=== PATIENT | male | born 1950 | race Caucasian/White ===

== ENCOUNTER 2016-10-04 15:36 | Observation (INO) | payer OTHER ==
[2016-10-04] VITALS (11 sets, daily range): BP systolic 83–144; BP diastolic 50–84; PULSE 55–134; RESP 15–20; TEMP 98.2–98.3; O2SAT 92–98
[~2016-10-04] VITALS: Ht 175.3 cm; Wt 82.0 kg
[~2016-10-04 15:36] MED LIST: ALBU0.086 NEB; ARTHCRE; ASPI81; DUONI NEB; GLIP5 PO; GLUC1000 PO; ISOS20 PO; LEVEMIR SQ; METO50TA PO; MOBI15TA PO; NAPR-729 PO; PHEN100 PO; ROSU40 PO; [UNRECOGNIZED DRUG - CODE] PO
--- NOTE | 2016-10-04 15:45 | PD ---
Physical Exam Time Seen by Provider: 15:44 Narrative 66 y/o male here with n/v, h/a, cough for 2 days. Concern for hyperglycemia. Vital signs reviewed. Seen at triage desk. Awaiting bed placement. Data Data Last Documented VS Vital Signs Date Time Temp Pulse Resp B/P Pulse Ox O2 Delivery O2 Flow Rate FiO2 10/04/16 15:38 98.2 75 15 119/73 98 MDM Medical Record Reviewed: Yes Supervised Visit with KENNY: Meng Wolf Oct 04, 2016 15:45
[2016-10-04] MEDS ORDERED: SODIUM CHLORIDE 0.9% FLUSH 10 ML FLUSH IV FLUSH PRN ×2 (16:15→19:30)
[2016-10-04] MEDS ORDERED: SODIUM CHLOR 0.9% 1000 ML INJ 1,000 ML IV SCH (16:15)
[2016-10-04] MEDS ORDERED: ONDANSETRON HCL 4 MG/2 ML VIAL IV PUSH ONE (16:30)
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
[2016-10-04 16:53] LABS: AUTOMATED NEUTROPHIL # 4.3 TH/MM3 (1.8-7.7); BASOPHIL % 0.4 % (0.0-2.0); EOSINOPHIL % 0.5 % (0.0-4.0); HEMATOCRIT 44.4 % (39.0-51.0); HEMO FLAGS DIFF FINAL; LYMPH % 22.5 % (9.0-44.0); LYMPHOCYTE # 1.4 TH/MM3 (1.0-4.8); MEAN CELL VOLUME 89.3 FL (80.0-100.0); MEAN CORPUSCULAR HEMOGLOBIN 30.6 PG (27.0-34.0); MEAN CORPUSCULAR HGB CONC 34.2 % (32.0-36.0); MONO % 8.8 % (0.0-8.0); NEUT % 67.8 % (16.0-70.0); PLATELET COUNT 146 TH/MM3 (150-450); RED BLOOD COUNT 4.97 MIL/MM3 (4.50-5.90); RED CELL DISTRIBUTION WIDTH 13.2 % (11.6-17.2); WHITE BLOOD COUNT 6.3 TH/MM3 (4.0-11.0)
--- NOTE | 2016-10-04 17:12 | RADRPT ---
EXAM DATE/TIME: 10/04/2016 16:57 [facility] COMPARISON: CT BRAIN W/O CONTRAST, November 12, 2014, 18:03. INDICATIONS : Headaches with vomiting. RADIATION DOSE: 35.44 CTDIvol (mGy) MEDICAL HISTORY : Cardiovascular disease. Hypertension. Diabetes mellitus type 2.Seizures SURGICAL HISTORY : Appendectomy. ENCOUNTER: Initial ACUITY: 1 day PAIN SCALE: 7/10 LOCATION: Bilateral cranial TECHNIQUE: Multiple contiguous axial images were obtained of the head. Using automated exposure control and adj ustment of the mA and/or kV according to patient size, radiation dose was kept as low as reasonably a chievable to obtain optimal diagnostic quality images. FINDINGS: CEREBRUM: The ventricles are normal for age. No evidence of midline shift, mass lesion, hemorrhage or acute in farction. No extra-axial fluid collections are seen. POSTERIOR FOSSA: The cerebellum and brainstem are intact. The 4th ventricle is midline. The cerebellopontine angle i s unremarkable. EXTRACRANIAL: The visualized portion of the orbits is intact. SKULL: The calvaria is intact. No evidence of skull fracture. Incomplete posterior arch of C1 ( normal vari ant). CONCLUSION: No acute intracranial findings. Dillon Younger MD on October 04, 2016 at 17:08 Board Certified Radiologist. This report was verified electronically.
--- NOTE | 2016-10-04 17:14 | RADRPT ---
EXAM DATE/TIME: 10/04/2016 16:39 [facility] COMPARISON: CHEST SINGLE AP, October 25, 2014, 4:01. INDICATIONS : Cough and shortness of breath. MEDICAL HISTORY : None. SURGICAL HISTORY : None. ENCOUNTER: Initial ACUITY: 1 day PAIN SCORE: 0/10 LOCATION: chest FINDINGS: 2 AP views of the chest. The lungs are clear. Cardiomediastinal silhouette within normal limits. No e vidence of pleural effusion or pneumothorax. CONCLUSION: No acute cardiopulmonary disease identified. Dillon Younger MD on October 04, 2016 at 17:10 Board Certified Radiologist. This report was verified electronically.
[2016-10-04 17:27] LABS: BACTERIA, URINE OCC /hpf; BLOOD, URINE NEG (NEG); COMMENT (UR) CULT NOT INDICATED; CULTURE IF INDICATED CULT NOT INDICATED; GLUCOSE,URINE 1000 mg/dL (NEG); HYALINE CAST, URINE 8 /lpf (RARE); KETONE, URINE 40 mg/dL (NEG); MUCUS URINE FEW /lpf (OCC); NITRITE,URINE NEG (NEG); PH, URINE 5.5 (5.0-8.5); URINE COLOR YELLOW (YELLW/STRAW)
[2016-10-04 17:29] LABS: ALT (GPT) 23 U/L (12-78); ANION GAP 6 MEQ/L (5-15); AST (GOT) 13 U/L (15-37); BICARBONATE 31.2 MEQ/L (21.0-32.0); BLOOD UREA NITROGEN 23 MG/DL (7-18); CHLORIDE 95 MEQ/L (98-107); GLOMERULAR FILTRATION RATE 69 ML/MIN (>89); MAGNESIUM 1.6 MG/DL (1.5-2.5); POTASSIUM 4.4 MEQ/L (3.5-5.1); SODIUM (NA) 132 MEQ/L (136-145)
[2016-10-04 17:32] LABS: ALKALINE PHOSPHATASE 65 U/L (45-117); BETA-HYDROXYBUTYRATE 1.06 MMOL/L (0.00-0.39); TOTAL BILIRUBIN ADULT 0.9 MG/DL (0.2-1.0)
[2016-10-04] MEDS ORDERED: SODIUM CHLOR 0.9% 1000 ML INJ 1,000 ML IV ONE (17:45)
[2016-10-04] MEDS ORDERED: METF1000 PO (17:54)
[2016-10-04] MEDS ORDERED: METOPROLOL TARTRATE 5 MG/5 ML VIAL IV PUSH ONE (18:00)
[2016-10-04] MEDS ORDERED: DILTIAZEM HCL 25 MG/5 ML VIAL IV ONE (18:00)
--- NOTE | 2016-10-04 18:03 | PD ---
Physical Exam Narrative I, Dr. Domínguez, have reviewed the advance practice practitioner's documentation and am in agreement, met with the patient face to face, made the diagnosis, and the medical decision making was done by me. *My assessment and Findings: Uncontrolled DM vs. DKA vs. electrolyte abnormality vs. infection vs. dehydration 66yo M with PMH of CAD, seizure disorder, DM here with complain of not feeling well and feeling thirsty. Labs reviewed, no leukocytosis. Glucose elevated at 301. No increased anion gap. CO2 31.2. Corrected sodium normal at 135. b- Hydroxybutyrate 1.06. UA showed ketones. No leukocyte or nitrite. CT brain negative. CXR negative. Pt given NS IVF x2. On reevaluation, pt found to be in afib RVR in the 130s-140s. Pt complaining of sob. Pt likely sob since his heart rate is in the 130s, but since pt has COPD and wants a treatment, will give a duoneb. Upon review of records, pt was admitted in 2014 with status epilepticus and was found to have afib and given cardizem and has been in sinus. Pt was seen by e commerce strategist Dr. Gonzales and is suppose to be on metoprolol at home. Pt has not taken his medications for a few days because he was not feeling well. Pt given cardizem 15mg IV in the ED and HR improved to 90s. Pt's heart rate went back up to 110s to 130s so started on cardizem drip. Pt reevaluated at bedside and states his sob has improved. Will admit pt for afib RVR. Data Data Last Documented VS Vital Signs Date Time Temp Pulse Resp B/P Pulse Ox O2 Delivery O2 Flow Rate FiO2 10/04/16 15:38 98.2 75 15 119/73 98 Orders Lipase (10/04/16 16:15) Complete Blood Count With Diff (10/04/16 16:15) Comprehensive Metabolic Panel (10/04/16 16:15) Magnesium (Mg) (10/04/16 16:15) Phosphorus (Po4) (10/04/16 16:15) Beta Hydroxybutyrate (Acetone) (10/04/16 16:15) Chest, Single Ap (10/04/16 ) Urinalysis - C+S If Indicated (10/04/16 16:15) Iv Access Insert/Monitor (10/04/16 16:15) Ecg Monitoring (10/04/16 16:15) Oximetry (10/04/16 16:15) Sodium Chlor 0.9% 1000 Ml Inj (Ns 1000 M (10/04/16 16:15) Sodium Chloride 0.9% Flush (Ns Flush) (10/04/16 16:15) Ct Brain W/O Iv Contrast(Rout) (10/04/16 ) Ondansetron Inj (Zofran Inj) (10/04/16 16:30) Sodium Chlor 0.9% 1000 Ml Inj (Ns 1000 M (10/04/16 17:45) Electrocardiogram (10/04/16 ) Metoprolol Tartrate Inj (Lopressor Inj) (10/04/16 18:00) Diltiazem Inj (Cardizem Inj) (10/04/16 18:00) Albuterol-Ipratropium Neb (Duoneb Neb) (10/04/16 18:15) Troponin I (10/04/16 18:12) Ckmb (Isoenzyme) Profile (10/04/16 18:12) B-Type Natriuretic Peptide (10/04/16 18:12) Blood Pressure (10/04/16 18:32) Vital Signs (10/04/16 18:32) Diltiazem Inj (Cardizem Inj) (10/04/16 18:45) Blood Glucose (10/04/16 18:41) Admit Order (Ed Use Only) (10/04/16 18:46) Labs Laboratory Tests Test 10/04/16 10/04/16 13:25 16:35 White Blood Count 6.3 TH/MM3 Red Blood Count 4.97 MIL/MM3 Hemoglobin 15.2 GM/DL Hematocrit 44.4 % Mean Corpuscular Volume 89.3 FL Mean Corpuscular Hemoglobin 30.6 PG Mean Corpuscular Hemoglobin 34.2 % Concent Red Cell Distribution Width 13.2 % Platelet Count 146 TH/MM3 Mean Platelet Volume 10.9 FL Neutrophils (%) (Auto) 67.8 % Lymphocytes (%) (Auto) 22.5 % Monocytes (%) (Auto) 8.8 % Eosinophils (%) (Auto) 0.5 % Basophils (%) (Auto) 0.4 % Neutrophils # (Auto) 4.3 TH/MM3 Lymphocytes # (Auto) 1.4 TH/MM3 Monocytes # (Auto) 0.6 TH/MM3 Eosinophils # (Auto) 0.0 TH/MM3 Basophils # (Auto) 0.0 TH/MM3 CBC Comment DIFF FINAL Differential Comment Sodium Level 132 MEQ/L Potassium Level 4.4 MEQ/L Chloride Level 95 MEQ/L Carbon Dioxide Level 31.2 MEQ/L Anion Gap 6 MEQ/L Blood Urea Nitrogen 23 MG/DL Creatinine 1.07 MG/DL Estimat Glomerular Filtration 69 ML/MIN Rate Random Glucose 301 MG/DL Calcium Level 9.4 MG/DL Phosphorus Level 2.8 MG/DL Magnesium Level 1.6 MG/DL Total Bilirubin 0.9 MG/DL Aspartate Amino Transf 13 U/L (AST/SGOT) Alanine Aminotransferase 23 U/L (ALT/SGPT) Alkaline Phosphatase 65 U/L Total Protein 6.7 GM/DL Albumin 3.7 GM/DL Lipase 95 U/L B-Hydroxybutyrate 1.06 MMOL/L Urine Color YELLOW Urine Turbidity CLEAR Urine pH 5.5 Urine Specific [place] 1.028 Urine Protein 30 mg/dL Urine Glucose (UA) 1000 mg/dL Urine Ketones 40 mg/dL Urine Occult Blood NEG Urine Nitrite NEG Urine Bilirubin NEG Urine Urobilinogen 2.0 MG/DL Urine Leukocyte Esterase NEG Urine RBC 2 /hpf Urine WBC 5 /hpf Urine Bacteria OCC /hpf Urine Hyaline Casts 8 /lpf Urine Mucus FEW /lpf Microscopic Urinalysis Comment CULT NOT INDICATED MDM Supervised Visit with KENNY: Yes Interpretation(s) EKG: Afib at 132bpm. Normal axis. No ST segment elevation or depression. EKG #2: Afib 103bpm. Normal axis. Critical Care Narrative Aggregate critical care time was 40 minutes. Time to perform other separately billable procedures was not included in the critical care time. My time did not include minutes spent treating any other patients simultaneously or on activities that did not directly contribute to the patient's treatment. The services I provided to this patient were to treat and/or prevent clinically significant deterioration that could result in: cardiovascular collapse or . I provided critical care services requiring my management, as noted below: Chart data review, documentation time, medication orders and management, vital sign assessments/reviewing monitor data, ordering and reviewing lab tests, ordering and interpreting/reviewing x-rays and diagnostic studies, care of the patient and discussion of the patient with the admitting physicians. Diagnosis Primary Impression: Atrial fibrillation with RVR Admitting Information Admitting Physician Requests: it Sejal Domínguez DO Oct 04, 2016 18:03
[2016-10-04] MEDS ORDERED: RESP: ALBUTEROL 2.5 MG/IPRATROPIUM 0.5 MG NEB (SCH) NEB ONE (18:15)
[2016-10-04] MEDS ORDERED: ASPI81CH CHEW (18:26)
[2016-10-04] MEDS ORDERED: IPRAAER INH (18:26)
[2016-10-04] MEDS ORDERED: GLIP10TA6 PO (18:26)
[2016-10-04] MEDS ORDERED: METO25TA3 PO (18:26)
[2016-10-04] MEDS ORDERED: MELO-1 PO (18:26)
[2016-10-04] MEDS: DILTIAZEM INJ 125 MG in SODIUM CHLORIDE 0.9% INJ 100 ML IV SCH (18:58)
[2016-10-04 19:19] LABS: CREATINE KINASE 78 U/L (39-308)
--- NOTE | 2016-10-04 19:22 | HHI.HP ---
[facility] Admission Diagnosis A. fib with RVR, hyperglycemia Diagnoses: (1) Atrial fibrillation with RVR Diagnosis: Principal (2) DM (diabetes mellitus) Diagnosis: Principal (3) HTN (hypertension) Diagnosis: Principal (4) Thrombocytopenia Diagnosis: Principal (5) Tobacco abuse Diagnosis: Principal (6) Alcohol abuse Diagnosis: Principal (7) Dehydration Diagnosis: Principal Travel History International Travel<30 Days: No Contact w/Intl Traveler <30 Da: No Traveled to Known Affected Are: No History of Present Illness This is a 66-year-old male with a PMH of HTN, DM, CAD, h/o Alcohol Abuse and Tobacco Abuse who presented to the ER with complaints of headache and elevated blood sugar. She does very poor historian. He sees had complaints of headache with associated nausea and vomiting since earlier today. Thinks his blood sugar is elevated. Noncompliant with blood sugar checks. On arrival, BP 119/73 , HR 75, O2 sat 98% on RA, Afebrile. In the ER, patient with episode of A. fib with RVR, HR 150s. S/p Cardizem IV w/ persistent tachycardia, currently on Cardizem gtt, HR 100's. Chemistry at baseline. Platelets 146, previously 125 on 11/13/14. BS 301. GFR 69. BUN 23. Troponin negative. CT Evidence no acute findings. CXR negative. Review of Systems Except as stated in HPI: all other systems reviewed are Neg ROS: 14 point review of systems otherwise negative. Past Family Social History Past Medical History PMH: HTN, DM, CAD, h/o Alcohol Abuse and Tobacco Abuse Past Surgical History PAST SURGICAL HISTORY: Appendectomy Allergies: Coded Allergies: No Known Allergies (Verified , 10/04/16) Family History PAST FAMILY HISTORY: Reviewed. No h/o DM or CAD Social History PAST SOCIAL HISTORY: History of alcohol abuse, reports quitting 2 months ago. Smokes 1/2-1ppd. Physical Exam Vital Signs Vital Signs Date Time Temp Pulse Resp B/P Pulse Ox O2 Delivery O2 Flow Rate FiO2 10/04/16 19:09 113 10/04/16 19:09 134 10/04/16 19:08 126 10/04/16 19:07 105 10/04/16 18:40 70 16 132/64 95 Room Air 10/04/16 17:45 83 16 144/84 94 Room Air 10/04/16 16:30 55 16 94/60 94 Room Air 10/04/16 15:38 98.2 75 15 119/73 98 Physical Exam PE: GENERAL: Middle-aged white male in no acute distress, disheveled. HEENT: PERRLA, EOMI. No scleral icterus or conjunctival pallor. No lid lag or facial droop. CARDIOVASCULAR: Irregularly irregular, and A. fib. No obvious murmurs to auscultation. No chest tenderness to palpation. RESPIRATORY: No obvious rhonchi or wheezing. Clear to auscultation. Breath sounds equal bilaterally. GASTROINTESTINAL: Abdomen soft, non-tender, nondistended. BS normal. MUSCULOSKELETAL: Extremities without clubbing, cyanosis, or edema. No obvious deformities. NEUROLOGICAL: Awake, alert and oriented x4. No focal neurologic deficits. Moving both upper and lower extremities spontaneously. Laboratory Laboratory Tests Test 10/04/16 10/04/16 13:25 16:35 White Blood Count 6.3 Red Blood Count 4.97 Hemoglobin 15.2 Hematocrit 44.4 Mean Corpuscular Volume 89.3 Mean Corpuscular Hemoglobin 30.6 Mean Corpuscular Hemoglobin 34.2 Concent Red Cell Distribution Width 13.2 Platelet Count 146 Mean Platelet Volume 10.9 Neutrophils (%) (Auto) 67.8 Lymphocytes (%) (Auto) 22.5 Monocytes (%) (Auto) 8.8 Eosinophils (%) (Auto) 0.5 Basophils (%) (Auto) 0.4 Neutrophils # (Auto) 4.3 Lymphocytes # (Auto) 1.4 Monocytes # (Auto) 0.6 Eosinophils # (Auto) 0.0 Basophils # (Auto) 0.0 CBC Comment DIFF FINAL Differential Comment Sodium Level 132 Potassium Level 4.4 Chloride Level 95 Carbon Dioxide Level 31.2 Anion Gap 6 Blood Urea Nitrogen 23 Creatinine 1.07 Estimat Glomerular Filtration 69 Rate Random Glucose 301 Calcium Level 9.4 Phosphorus Level 2.8 Magnesium Level 1.6 Total Bilirubin 0.9 Aspartate Amino Transf 13 (AST/SGOT) Alanine Aminotransferase 23 (ALT/SGPT) Alkaline Phosphatase 65 Total Creatine Kinase 78 Troponin I LESS THAN 0.02 Total Protein 6.7 Albumin 3.7 Lipase 95 B-Hydroxybutyrate 1.06 Urine Color YELLOW Urine Turbidity CLEAR Urine pH 5.5 Urine Specific [place] 1.028 Urine Protein 30 Urine Glucose (UA) 1000 Urine Ketones 40 Urine Occult Blood NEG Urine Nitrite NEG Urine Bilirubin NEG Urine Urobilinogen 2.0 Urine Leukocyte Esterase NEG Urine RBC 2 Urine WBC 5 Urine Bacteria OCC Urine Hyaline Casts 8 Urine Mucus FEW Microscopic Urinalysis Comment CULT NOT INDICATED Result Diagram: 10/04/16 1325 10/04/16 1325 Assessment and Plan Problem List: (1) Atrial fibrillation with RVR ICD Code: I48.91 Status: Acute (2) Dehydration ICD Code: E86.0 Status: Acute (3) DM (diabetes mellitus) ICD Code: E11.9 Status: Acute (4) Thrombocytopenia ICD Code: D69.6 Status: Acute (5) HTN (hypertension) ICD Code: I10 Status: Acute (6) Alcohol abuse ICD Code: F10.10 Status: Acute (7) Tobacco abuse ICD Code: Z72.0 Status: Acute Assessment and Plan A/P: 1. A-fib: w/ RVR. New Onset. HR 150's while in ER, s/p Cardizem, currently on Cardizem gtt. Initial trop negative. IVF for hydration. Admit to [facility], telemetry, continue Cardizem gtt. Check Echo, serial cardiac enzymes for trend , Consult Cardiology for further recommendations. ASA, Metoprolol, Statin. CXR w/ no acute findings, images reviewed by me. 2. DM: Uncontrolled. Non-compliant. Hold Metformin for possibility of cardiac intervention secondary to above. Continue Glipizide. Sliding scale w/ Accu-Cheks. Check Hgb A1c. 3. Dehydration: Transient hypotension while in ER, BP 90's systolic, s/p IVF w / improvement. BUN 23, GFR 69. U/a negative. IVF for hydration. Monitor BP, hold parameters for BP meds. 4. Thrombocytopenia: Stable. Platelets 146, previously 125 on 11/13/14. Likely secondary to chronic alcohol abuse. No active bleeding at this time. Will monitor. Repeat labs in a.m. 5. HTN: As above, episode of transient hypotension, will monitor closely. Hold parameters for BP meds. 6. Alcohol Abuse: reports quitting 2 months ago, however headache, nausea/ vomiting possibly related to withdrawal if more recent alcohol ingestion. CT Head w/ no acute findings, images reviewed by me. CIWA, Seizure Precautions, MVT/Thiamine/Folate replacement. 7. Tobacco Abuse: No NicoDerm to avoid vasoconstriction. Ativan prn. 8. DVT Prophylaxis: SCD/Teds. 9. Social work for d/c planning as needed. 10. Case discussed w/ ER physician at length. Physician Certification 2 Midnight Certification Type: Admission for Inpatient Services Order for Inpatient Services The services are ordered in accordance with Medicare regulations or non- Medicare payer requirements, as applicable. In the case of services not specified as inpatient-only, they are appropriately provided as inpatient services in accordance with the 2-midnight benchmark. Estimated LOS (days): 2 days is the estimated time the patient will need to remain in the hospital, assuming treatment plan goals are met and no additional complications. Post-Hospital Plan: Not yet determined Kathy Sargent MD Oct 04, 2016 19:22
[2016-10-04] MEDS ORDERED: MORPHINE SULFATE 4 MG/ML INJ IV PRN (19:30)
[2016-10-04] MEDS ORDERED: LACTULOSE SYRUP 20 GM/30 ML CUP PO PRN (19:30)
[2016-10-04] MEDS ORDERED: BISACODYL 10 MG SUPP RECTAL PRN (19:30)
[2016-10-04] MEDS ORDERED: ACETAMINOPHEN 325 MG TAB PO PRN (19:30)
[2016-10-04] MEDS ORDERED: MAGNESIUM HYDROXIDE SUSP 30 ML CUP PO PRN (19:30)
[2016-10-04] MEDS ORDERED: ONDANSETRON HCL 4 MG/2 ML VIAL IVP PRN (19:30)
[2016-10-04] MEDS ORDERED: DEXTROSE 50% IN WATER 50 ML VIAL(D50) IV PRN (19:30)
[2016-10-04] MEDS ORDERED: SENNOSIDES 8.6 MG TAB PO PRN (19:30)
[2016-10-04] MEDS ORDERED: GLUCAGON 1 MG/ML VIAL OTHER PRN (19:30)
[2016-10-04] MEDS ORDERED: LORazepam 2 MG/ML VIAL IV PUSH PRN ×5 (19:45→20:00)
[2016-10-04] MEDS ORDERED: LORazepam 2 MG TAB PO PRN (20:00)
[2016-10-04] MEDS ORDERED: FLUMAZENIL 0.5 MG/5 ML VIAL IV PUSH PRN (20:00)
[2016-10-04] MEDS ORDERED: HALOPERIDOL LACTATE 5 MG/ML AMP IM PRN (20:00)
[2016-10-04] MEDS ORDERED: LORazepam 1 MG TAB PO PRN (20:00)
[2016-10-04] MEDS: METOPROLOL TARTRATE 25 MG TAB PO SCH (21:00)
[2016-10-04] MEDS: DOCUSATE SODIUM 50 MG/SENNA 8.6 MG TAB PO SCH (21:00)
[2016-10-04] MEDS: INSULIN ASPART SUPPLEMENTAL SCALE SQ SCH (21:00)
[2016-10-04] MEDS: ALBUTEROL SULFATE 90 MCG/ACT HFA 18 GM INHALER INH SCH (21:00)
[2016-10-04] MEDS: ACETAMINOPHEN/HYDROcodone 325 MG/5 MG TAB PO PRN (22:30)
[2016-10-05] VITALS (22 sets, daily range): BP systolic 95–117; BP diastolic 62–77; PULSE 46–120; RESP 16–20; TEMP 97.4–98.6; O2SAT 91–95
[2016-10-05 05:34] LABS: AUTOMATED NEUTROPHIL # 2.5 TH/MM3 (1.8-7.7); BASOPHIL % 0.4 % (0.0-2.0); EOSINOPHIL # 0.1 TH/MM3 (0-0.4); EOSINOPHIL % 1.3 % (0.0-4.0); HEMATOCRIT 41.4 % (39.0-51.0); HEMO FLAGS DIFF FINAL; LYMPH % 40.9 % (9.0-44.0); LYMPHOCYTE # 2.2 TH/MM3 (1.0-4.8); MEAN CELL VOLUME 90.8 FL (80.0-100.0); MEAN CORPUSCULAR HEMOGLOBIN 29.9 PG (27.0-34.0); MONO % 10.4 % (0.0-8.0); PLATELET COUNT 123 TH/MM3 (150-450); RED BLOOD COUNT 4.56 MIL/MM3 (4.50-5.90); RED CELL DISTRIBUTION WIDTH 13.4 % (11.6-17.2); WHITE BLOOD COUNT 5.4 TH/MM3 (4.0-11.0)
[2016-10-05 05:42] LABS: ANION GAP 6 MEQ/L (5-15); AST (GOT) 6 U/L (15-37); BICARBONATE 28.9 MEQ/L (21.0-32.0); BLOOD UREA NITROGEN 19 MG/DL (7-18); CHLORIDE 100 MEQ/L (98-107); GLOMERULAR FILTRATION RATE 84 ML/MIN (>89); POTASSIUM 3.8 MEQ/L (3.5-5.1); SODIUM (NA) 135 MEQ/L (136-145)
[2016-10-05 05:44] LABS: ALT (GPT) 19 U/L (12-78)
[2016-10-05 05:53] LABS: ALKALINE PHOSPHATASE 55 U/L (45-117); TOTAL BILIRUBIN ADULT 0.5 MG/DL (0.2-1.0)
[2016-10-05] MEDS: SODIUM CHLOR 0.9% 1000 ML INJ 1,000 ML IV SCH ×2 (06:00→16:00)
[2016-10-05] MEDS: glipiZIDE 10 MG TAB PO SCH ×2 (06:13→16:50)
[2016-10-05] MEDS: INSULIN ASPART SUPPLEMENTAL SCALE SQ SCH ×4 (06:14→22:17)
[2016-10-05] MEDS: SODIUM CHLORIDE 0.9% FLUSH 10 ML FLUSH IV FLUSH SCH ×2 (08:41→22:19)
[2016-10-05] MEDS: TIOTROPIUM BROMIDE 18 MCG INH INH SCH (08:41)
[2016-10-05] MEDS: THIAMINE HCL 100 MG TAB PO SCH (08:42)
[2016-10-05] MEDS: ASPIRIN 81 MG CHEW TAB CHEW SCH (08:42)
[2016-10-05] MEDS: FOLIC ACID 1 MG TAB PO SCH (08:42)
[2016-10-05] MEDS: DOCUSATE SODIUM 50 MG/SENNA 8.6 MG TAB PO SCH ×2 (08:42→21:00)
[2016-10-05] MEDS: MULTIVITAMINS/MINERALS THERAPEUTIC TAB PO SCH (08:43)
[2016-10-05] MEDS: METOPROLOL TARTRATE 25 MG TAB PO SCH ×2 (08:43→21:00)
[2016-10-05] MEDS: ACETAMINOPHEN/HYDROcodone 325 MG/5 MG TAB PO PRN (08:43)
[2016-10-05] MEDS: ALBUTEROL SULFATE 90 MCG/ACT HFA 18 GM INHALER INH SCH ×3 (09:45→17:40)
--- NOTE | 2016-10-05 10:39 | HHI.PR ---
Subjective Remarks Patient seen and examined this morning. Vitals are stable and the patient is afebrile. He denies CP or SOB. He wants to go home, lives with and kid. He states he sometimes sees things that aren't there, sees eric pies. Objective Vital Signs Date Time Temp Pulse Resp B/P Pulse Ox O2 Delivery O2 Flow Rate FiO2 10/05/16 07:45 98.4 56 16 106/68 95 10/05/16 04:00 98.2 88 20 107/70 91 10/05/16 03:00 88 10/05/16 02:00 80 10/05/16 01:00 56 10/05/16 00:00 50 10/05/16 00:00 98.0 53 18 99/62 94 10/04/16 23:00 90 10/04/16 22:00 84 10/04/16 22:00 88 105/76 92 10/04/16 21:30 98.3 58 20 83/50 92 10/04/16 20:09 103 16 130/66 97 Room Air 10/04/16 19:09 113 10/04/16 19:09 134 10/04/16 19:08 126 10/04/16 19:07 105 10/04/16 18:40 70 16 132/64 95 Room Air 10/04/16 17:45 83 16 144/84 94 Room Air 10/04/16 16:30 55 16 94/60 94 Room Air 10/04/16 15:38 98.2 75 15 119/73 98 I/O 10/04/16 10/04/16 10/04/16 10/05/16 10/05/16 10/05/16 07:00 15:00 23:00 07:00 15:00 23:00 Intake Total 720 ml Output Total 650 ml Balance 70 ml Intake Oral 720 ml Output Urine Total 650 ml Result Diagram: 10/05/16 0411 10/05/16 0411 Imaging Last Impressions Head CT 10/04/16 0000 Signed Impressions: Service Date/Time: Tuesday, October 04, 2016 16:57 - CONCLUSION: No acute intracranial findings. Dillon Younger MD Chest X-Ray 10/04/16 0000 Signed Impressions: Service Date/Time: Tuesday, October 04, 2016 16:39 - CONCLUSION: No acute cardiopulmonary disease identified. Dillon Younger MD Other Results GENERAL: well appearing, nad SKIN: Warm and dry. HEAD: Normocephalic. EYES: No scleral icterus. No injection or drainage. NECK: Supple, trachea midline. No JVD or lymphadenopathy. CARDIOVASCULAR: Regular rate and rhythm without murmurs, gallops, or rubs. RESPIRATORY: Breath sounds equal bilaterally. No accessory muscle use. GASTROINTESTINAL: Abdomen soft, non-tender, nondistended. MUSCULOSKELETAL: No cyanosis, or edema. BACK: Nontender without obvious deformity. No CVA tenderness. Neuro: awake and alert x3, denies hearing voices, but reports hallucinations A/P Problem List: (1) Diabetes mellitus ICD Code: E11.9 (2) CAD (coronary artery disease) ICD Code: I25.10 (3) Atrial fibrillation ICD Code: I48.91 (4) DM (diabetes mellitus) ICD Code: E11.9 (5) HTN (hypertension) ICD Code: I10 (6) Tobacco abuse ICD Code: Z72.0 Assessment and Plan 66-year-old male with 1. A-fib: w/ RVR. New Onset. HR 150's while in ER, now in the 50s. Troponin negative 3. Status post Cardizem drip. Metoprolol 25 mg by mouth twice a day. He was started on Coumadin 5 mg daily, by cardiology. US venous LE and CTA ordered by cards. Lovenox 80 mg PO BID. 2. DM: Uncontrolled. Non-compliant. Hold Metformin for possibility of cardiac intervention secondary to above. Continue Glipizide. Sliding scale w/ Accu-Cheks. Check Hgb A1c pending. Begin basal insulin Levemir 5 units at bedtime. Titrate up as needed. 3. Thrombocytopenia: Stable. Previously 125 on 11/13/14. Likely secondary to chronic alcohol abuse. No active bleeding at this time. Will monitor. 4. HTN: As above. Hold parameters for BP meds due to episode of transient hypotension.. 5. Alcohol Abuse: reports quitting [address] Head w/ no acute findings. CIWA, Seizure Precautions, MVT/Thiamine/Folate replacement. 6. Tobacco Abuse: No NicoDerm to avoid vasoconstriction. Ativan prn. 7. DVT Prophylaxis: SCD/Teds. Lovenox. Discharge Planning DC pending further workup. Likely 1-2 days. Moura,Shilpa MD R3 Oct 05, 2016 10:39
--- NOTE | 2016-10-05 10:57 | EC ---
Study Study Date:10/05/2016 STUDY CONCLUSIONS SUMMARY - Right ventricle: The cavity size was mildly dilated. Wall thickness was normal. There was an apparent, 23mm (L) x 16mm (W) thrombus on the moderator band. - Left ventricle: The cavity size was normal. Wall thickness was normal. Systolic function was normal. The estimated ejection fraction was in the range of 55% to 60%. Wall motion was normal; there were no regional wall motion abnormalities. - Mitral valve: Mild regurgitation. - Tricuspid valve: Mild regurgitation. - Pulmonary arteries: Systolic pressure was moderately increased. PA peak pressure: 62mm Hg (S). If LV function is below 40, please consider prescribing an ACEI or ARB or document rationale for non-use. PROCEDURE DATA STUDY STATUS: Elective. Procedure: Transthoracic echocardiography. Image quality was good. Scanning was performed from the parasternal, apical, and subcostal acoustic windows. Study completion: The patient tolerated the procedure well. Transthoracic echocardiography. M-mode, complete 2D, complete spectral Doppler, and color Doppler. Patient status: Inpatient. CARDIAC ANATOMY LEFT VENTRICLE: The cavity size was normal. Wall thickness was normal. Systolic function was normal. The estimated ejection fraction was in the range of 55% to 60%. Wall motion was normal; there were no regional wall motion abnormalities. AORTIC VALVE: Trileaflet; normal thickness leaflets. Doppler: Transvalvular velocity was within the normal range. There was no stenosis. No regurgitation. AORTA: Aortic root: The aortic root was normal in size. MITRAL VALVE: Structurally normal valve. Doppler: Transvalvular velocity was within the normal range. There was no evidence for stenosis. Mild regurgitation. LEFT ATRIUM: The atrium was normal in size. RIGHT VENTRICLE: The cavity size was mildly dilated. Wall thickness was normal. There was an apparent, 23mm (L) x 16mm (W) thrombus on the moderator band. PULMONIC VALVE: Doppler: Transvalvular velocity was within the normal range. There was no evidence for stenosis. No regurgitation. TRICUSPID VALVE: Structurally normal valve. Doppler: Transvalvular velocity was within the normal range. Mild regurgitation. PULMONARY ARTERY: The main pulmonary artery was normal-sized. Systolic pressure was moderately increased. RIGHT ATRIUM: The atrium was normal in size. PERICARDIUM: There was no pericardial effusion. SYSTEMIC VEINS: Inferior vena cava: The vessel was normal in size. BASIC MEASUREMENTS ADULT Normal Left ventricle LV internal dimension, ED, chordal level, *38.6 mm 43-52 PLAX LV internal dimension, ES, chordal level, 28.8 mm 23-38 PLAX Fractional shortening, chordal level, PLAX *25 % >29 LV posterior wall thickness, ED 12 mm IVS/LVPW ratio, ED 0.89 <1.3 Ventricular septum Septal thickness, ED 10.7 mm Aortic valve Leaflet separation 21 mm 15-26 Right ventricle RV internal dimension, ED, PLAX 30.6 mm 19-38 BASIC MEASUREMENTS ADULT Normal Aortic valve Leaflet separation 21 mm 15-26 Aorta Root diameter, ED 31 mm 20-37 Left atrium Anterior-posterior dimension, ES 30 mm 19-40 LA/aortic root ratio 0.97 DOPPLER MEASUREMENTS ADULT Normal Main pulmonary artery Pressure, S *62 mm Hg =30 Mitral valve Peak E-wave velocity 65.2 cm/s Peak A-wave velocity 54.8 cm/s Peak E/A ratio 1.2 Tricuspid valve Regurgitant peak velocity 360 cm/s Peak RV-RA gradient, S 52 mm Hg Maximal regurgitant velocity 360 cm/s Systemic veins Estimated CVP 10 mm Hg Right ventricle RV pressure, S *62 mm Hg <30 LEGEND: Mean values are shown as u=mean value. Asterisk (*) ramirez values outside specified normal range. Prepared and signed by Tong Chatterjee [id number]
[2016-10-05] MEDS ORDERED: IOHEXOL 350 MG/ML 10 ML VIAL (for RAD DIAG) IV ONE (11:38)
--- NOTE | 2016-10-05 12:19 | RADRPT ---
EXAM DATE/TIME: 10/05/2016 11:32 [facility] COMPARISON: No previous studies available for comparison. INDICATIONS : Chest pain. IV CONTRAST: 75 cc Omnipaque 350 (iohexol) IV RADIATION DOSE: 20.05 CTDIvol (mGy) MEDICAL HISTORY : Cardiovascular disease. Hypertension. Chronic obstructive pulmonary disease. SURGICAL HISTORY : None. ENCOUNTER: Initial ACUITY: 1 day PAIN SCALE: 2/10 LOCATION: Bilateral chest TECHNIQUE: Volumetric scanning of the chest was performed using a pulmonary embolism protocol MIP images were re constructed. Using automated exposure control and adjustment of the mA and/or kV according to patien t size, radiation dose was kept as low as reasonably achievable to obtain optimal diagnostic quality images. FINDINGS: PULMONARY ARTERIES: No filling defects are seen in the pulmonary arteries through the segmental level. LUNGS: Mild atelectasis in the lower lobes right greater than left. PLEURAE: There is no pleural thickening or pleural effusion. MEDIASTINUM: Coronary artery calcifications. No enlarged lymph nodes. Aortic diameter are within normal limits. MUSCULOSKELETAL: Within normal limits for patient age. MISCELLANEOUS: Calcified gallstone. CONCLUSION: 1. No evidence of pulmonary embolus. 2. Coronary artery calcifications. 3. Cholelithiasis. Dillon Younger MD on October 05, 2016 at 12:11 Board Certified Radiologist. This report was verified electronically.
--- NOTE | 2016-10-05 13:50 | EKG ---
Date Performed: 10/04/2016 Time Performed: 17:51:25 PTAGE: 66 years EKG: ATRIAL FIBRILLATION WITH RAPID VENTRICULAR RESPONSE NONSPECIFIC ST & T-WAVE ABNORMALITY Com pared to previous tracing, ventricular response to the atrial fibrillation is faster, otherwise no si gnificant change ABNORMAL RHYTHM ECG PREVIOUS TRACING : 11/12/2014 22.57 DOCTOR: Marco Antonio Salinas Interpretating Date/Time 10/05/2016 13:48:55
--- NOTE | 2016-10-05 13:50 | EKG ---
Date Performed: 10/04/2016 Time Performed: 18:10:01 PTAGE: 66 years EKG: ATRIAL FIBRILLATION WITH RAPID VENTRICULAR RESPONSE WITH ABERRANT CONDUCTION OR VENTRICULAR PREMATURE COMPLEXES NONSPECIFIC T-WAVE ABNORMALITY Compared to previous tracing, the ventricular res ponse to the atrial fibrillation is somewhat slower, otherwise no significant change ABNORMAL ECG PREVIOUS TRACING : 10/04/2016 17.51 DOCTOR: Marco Antonio Salinas Interpretating Date/Time 10/05/2016 13:49:41
[2016-10-05 14:00] LABS: PROTHROMBIN TIME - PATIENT 10.9 SEC (9.8-11.6)
--- NOTE | 2016-10-05 14:49 | MB ---
cc: MATHEW HAMILTON MD DATE OF CONSULTATION 10/05/16 REASON FOR CONSULTATION Atrial fibrillation. HISTORY OF PRESENT ILLNESS The patient is a pleasant 66-year-old gentleman who gets his care at the [facility] who has a history of hypertension, diabetes, coronary artery disease (there is some dispute within the chart whether the patient has had a stent. The patient denies). He complained of headache, elevated blood sugar of palpitations. He is a very poor historian and quite vague about all the details. He was found to be in atrial fibrillation and thus admitted. He is currently asymptomatic and back in sinus rhythm. He denies any chest pain, shortness of breath, lightheadedness or dizziness. PAST MEDICAL HISTORY Hypertension, diabetes, moderate coronary artery disease by cardiac catheterization (some chart reports dictate a stent or PCI though the patient denies). Prior alcohol abuse (the patient says he has not had a drink in 3 weeks), tobacco abuse. CURRENT MEDICATIONS 1. Aspirin 81 milligrams daily. 2. Folate 1 milligram daily. 3. Thiamine. 4. Lopressor 25 milligrams b.i.d. ALLERGIES NO KNOWN DRUG ALLERGIES. PHYSICAL EXAMINATION VITAL SIGNS: Afebrile, pulse 56, respiratory rate 16, BP 106/68, satting 95%. GENERAL: Pleasant, well-appearing gentleman in no distress. NECK: No JVD. LUNGS: Clear to auscultation bilaterally. CARDIOVASCULAR: Regular rate and rhythm. No murmurs appreciated. ABDOMEN: Benign. EXTREMITIES: No edema. LABORATORY DATA White count 5.4, hematocrit 41.4, platelets 123. Sodium 135, potassium 3.8, chloride 100, bicarb 28.9, BUN 19, creatinine 0.91, glucose 319. Cardiac enzymes are negative x3. CARDIOLOGY STUDIES EKG showed a mildly rapid atrial fibrillation at a rate of [address] changes. IMPRESSION Apparently new onset atrial fibrillation. The patient has a CHADS VASc score of 3 for age, diabetes and blood pressure and will require full anticoagulation. I will initiate Coumadin which can be followed at the [facility]. He is currently sinus rhythm. I will continue him on his metoprolol. His blood pressures at the moment do not allow for significant increase in this but this can be titrated as an outpatient. He does have a history of higher blood pressures seen in the past when he is at this hospital. He has no major findings on his echocardiogram and he remains in sinus rhythm. He could potentially be discharged home later today or tomorrow. Thank you again for the opportunity to participate in this patient's care. MD SREE Robles/NELIA /8:51 AM /2:32 PM
[2016-10-05] MEDS: WARFARIN SOD 5 MG TAB PO SCH (16:50)
[2016-10-05] MEDS ORDERED: DILTIAZEM HCL 25 MG/5 ML VIAL IV ONE (17:00)
[2016-10-05] MEDS: DILTIAZEM INJ 125 MG in SODIUM CHLORIDE 0.9% INJ 100 ML IV SCH (17:41)
--- NOTE | 2016-10-05 22:02 | RADRPT ---
EXAM DATE/TIME: 10/05/2016 15:45 [facility] COMPARISON: No previous studies available for comparison. INDICATIONS : Bilateral leg swelling. MEDICAL HISTORY : Myocardial infarction. Hypercholesterolemia. Arthritis. Headache. Chest pain. HTN. COPD. Dyspnea. Irr egular heartbeat. Diabetes. SURGICAL HISTORY : Appendectomy. Teeth removed. ENCOUNTER: Initial ACUITY: 1 day PAIN SCORE: 2/10 LOCATION: Bilateral leg. TECHNIQUE: Venous ultrasound of the left and right leg was performed from the inguinal ligament to the proximal calf. Real-time, color Doppler and spectral tracing, compression and augmentation techniques were us ed. FINDINGS: RIGHT LEG: There is normal compressibility of the deep venous system from the inguinal region to the proximal ca lf. No echogenic clot is seen in the lumen of the common femoral, femoral, popliteal, and posterior tibial veins. There is a normal response of the venous system to proximal and distal augmentation an d respiration. LEFT LEG: There is normal compressibility of the deep venous system from the inguinal region to the proximal ca lf. No echogenic clot is seen in the lumen of the common femoral, femoral, popliteal, and posterior tibial veins. There is a normal response of the venous system to proximal and distal augmentation an d respiration. CONCLUSION: The study is negative for deep venous thrombosis bilateral lower extremity. Edison Paris MD on October 05, 2016 at 21:59 Board Certified Radiologist. This report was verified electronically.
[2016-10-05] MEDS: INSULIN DETEMIR 100 UNITS/ML VIAL SQ SCH (22:17)
[2016-10-05] MEDS: ENOXAPARIN SODIUM 80 MG/0.8 ML SYRINGE SQ SCH (22:18)
[2016-10-06] VITALS (26 sets, daily range): BP systolic 95–147; BP diastolic 49–92; PULSE 52–155; RESP 16–18; TEMP 97.4–98.4; O2SAT 93–98
[2016-10-06] MEDS: SODIUM CHLOR 0.9% 1000 ML INJ 1,000 ML IV SCH ×3 (02:00→22:00)
[2016-10-06 05:52] LABS: PROTHROMBIN TIME - PATIENT 11.2 SEC (9.8-11.6)
[2016-10-06 06:16] LABS: BICARBONATE 30.5 MEQ/L (21.0-32.0); POTASSIUM 3.7 MEQ/L (3.5-5.1)
[2016-10-06] MEDS: glipiZIDE 10 MG TAB PO SCH ×2 (07:34→16:19)
[2016-10-06] MEDS: INSULIN ASPART SUPPLEMENTAL SCALE SQ SCH ×4 (07:34→20:55)
[2016-10-06] MEDS: METOPROLOL TARTRATE 25 MG TAB PO SCH ×3 (09:00→20:46)
--- NOTE | 2016-10-06 09:04 | PD.CARD.PN ---
Subjective Subjective Remarks Rate controlled atrial fibrillation on tele, no sx. Objective Medications Administered Medications Medications (Trade) Dose Ordered Sig/Ivory Route PRN Reason Start Time Stop Time Status Last Admin Dose Admin Diltiazem HCl 125 mg/Sodium Chloride 125 ml @ 0 mls/hr TITRATE IV 10/04/16 18:45 10/05/16 17:41 Sodium Chloride (NS 1000 ml Inj) 1,000 ml @ 100 mls/hr Q10H IV 10/04/16 20:00 10/06/16 02:00 Sodium Chloride (NS Flush) 2 ml BID IV FLUSH 10/04/16 21:00 10/05/16 22:19 Acetaminophen/ Hydrocodone Bitart ([place] 5-325 Mg) 1 tab Q4H PRN PO PAIN SCALE 3 TO 5 10/04/16 19:30 10/05/16 08:43 Senna/Docusate Sodium ([place]-Colace) 1 tab BID PO 10/04/16 21:00 10/05/16 08:42 Aspirin (Aspirin Chew) 81 mg DAILY CHEW 10/05/16 09:00 10/05/16 08:42 Glipizide (Glucotrol) 10 mg BIDAC PO 10/05/16 07:00 10/06/16 07:34 Tiotropium [place] (Spiriva Inh) 18 mcg DAILY INH 10/05/16 09:00 10/05/16 08:41 Folic Acid (Folate) 1 mg DAILY PO 10/05/16 09:00 10/10/16 08:59 10/05/16 08:42 Thiamine HCl (Vitamin B1) 100 mg DAILY PO 10/05/16 09:00 10/05/16 08:42 Multivitamins/ Minerals Therapeutic (Theragran M Tab) 1 tab DAILY PO 10/05/16 09:00 10/10/16 08:59 10/05/16 08:43 Lorazepam (Ativan Inj) 2 mg Q1H PRN IV PUSH CIWA 15-20 10/04/16 20:00 10/05/16 18:19 Lorazepam (Ativan Inj) 2 mg Q15M PRN IV PUSH CIWA > 20 10/04/16 20:00 10/05/16 19:37 Albuterol Sulfate (Ventolin Hfa Inh) 2 puff QID INH 10/04/16 21:00 10/05/16 17:40 Insulin Detemir (Levemir Inj) 5 units HS SQ 10/05/16 21:00 10/05/16 22:17 Enoxaparin Sodium (Lovenox Inj) 80 mg Q12H SQ 10/05/16 20:00 10/05/16 22:18 Warfarin Sodium (Coumadin) 5 mg DAILY@1600 PO 10/05/16 16:00 10/05/16 16:50 Vital Signs / I&O Vital Signs Date Time Temp Pulse Resp B/P Pulse Ox O2 Delivery O2 Flow Rate FiO2 10/06/16 06:53 76 16 117/87 93 10/06/16 06:00 78 10/06/16 05:24 98.1 86 16 95/70 93 10/06/16 05:00 104 10/06/16 04:00 86 10/06/16 03:00 101 10/06/16 02:00 52 10/06/16 01:03 97.4 88 16 101/65 93 10/06/16 01:00 62 10/06/16 00:00 54 10/05/16 23:00 46 10/05/16 22:00 88 10/05/16 21:00 90 10/05/16 20:08 97.4 84 16 106/74 94 10/05/16 20:00 98 10/05/16 19:00 114 10/05/16 18:28 102 10/05/16 17:57 108 10/05/16 16:30 120 10/05/16 15:33 57 10/05/16 15:33 97.9 57 16 117/77 95 10/05/16 14:28 66 10/05/16 13:18 58 10/05/16 12:36 60 10/05/16 11:19 98.6 55 16 95/63 94 10/05/16 11:02 56 10/05/16 10:00 56 10/05/16 10:00 18 I/O 10/05/16 10/05/16 10/05/16 10/06/16 10/06/16 10/06/16 07:00 15:00 23:00 07:00 15:00 23:00 Intake Total 720 ml 2160 ml 1075 ml Output Total 650 ml 1800 ml 1010 ml Balance 70 ml 360 ml 65 ml Intake Oral 720 ml 2160 ml 325 ml IV Total 750 ml Output Urine Total 650 ml 1800 ml 1010 ml Physical Exam GENERAL: This is a well-nourished, well-developed patient, in no apparent distress. CARDIOVASCULAR: Regular rate and irregular rhythm without murmurs, gallops, or rubs. RESPIRATORY: Clear to auscultation. Breath sounds equal bilaterally. No wheezes , rales, or rhonchi. GASTROINTESTINAL: Abdomen soft, non-tender, nondistended. Normal, active bowel sounds MUSCULOSKELETAL: Extremities without clubbing, cyanosis, or edema. NEURO: Alert & Oriented x4 to person, place, time, situation. Moves all ext x4 Laboratory Laboratory Tests Test 10/05/16 10/06/16 13:38 04:57 Prothrombin Time 10.9 SEC 11.2 SEC Prothromb Time International 1.0 RATIO 1.0 RATIO Ratio Sodium Level 142 MEQ/L Potassium Level 3.7 MEQ/L Chloride Level 104 MEQ/L Carbon Dioxide Level 30.5 MEQ/L Anion Gap 8 MEQ/L Blood Urea Nitrogen 14 MG/DL Creatinine 0.69 MG/DL Estimat Glomerular Filtration 115 ML/MIN Rate Random Glucose 179 MG/DL Calcium Level 8.8 MG/DL Imaging Last Impressions Lower Extremity Ultrasound 10/05/16 0000 Signed Impressions: Service Date/Time: Wednesday, October 05, 2016 15:45 - CONCLUSION: The study is negative for deep venous thrombosis bilateral lower extremity. Edison Paris MD CT Angiography 10/05/16 0000 Signed Impressions: Service Date/Time: Wednesday, October 05, 2016 11:32 - CONCLUSION: 1. No evidence of pulmonary embolus. 2. Coronary artery calcifications. 3. Cholelithiasis. Dillon Younger MD Head CT 10/04/16 0000 Signed Impressions: Service Date/Time: Tuesday, October 04, 2016 16:57 - CONCLUSION: No acute intracranial findings. Dillon Younger MD Chest X-Ray 10/04/16 0000 Signed Impressions: Service Date/Time: Tuesday, October 04, 2016 16:39 - CONCLUSION: No acute cardiopulmonary disease identified. Dillon Younger MD Assessment and Plan Problem List: (1) Atrial fibrillation with RVR Assessment and Plan: currently rate controlled (2) Alcohol abuse Assessment and Plan: counseled at length, in very early remission (3) Thrombus of right ventricle without NH Assessment and Plan: Suspicious by echo though negative for PE or LE DVT; requires full anticoagulation regardless due to atrial fibrillation; lovenox until warfarin therapeutic. Tong Chatterjee MD Oct 06, 2016 09:04
[2016-10-06] MEDS: ALBUTEROL SULFATE 90 MCG/ACT HFA 18 GM INHALER INH SCH ×4 (09:25→21:39)
[2016-10-06] MEDS: TIOTROPIUM BROMIDE 18 MCG INH INH SCH (09:25)
[2016-10-06] MEDS: THIAMINE HCL 100 MG TAB PO SCH (09:26)
[2016-10-06] MEDS: ENOXAPARIN SODIUM 80 MG/0.8 ML SYRINGE SQ SCH ×2 (09:26→20:45)
[2016-10-06] MEDS: MULTIVITAMINS/MINERALS THERAPEUTIC TAB PO SCH (09:26)
[2016-10-06] MEDS: DOCUSATE SODIUM 50 MG/SENNA 8.6 MG TAB PO SCH ×2 (09:26→20:46)
[2016-10-06] MEDS: ASPIRIN 81 MG CHEW TAB CHEW SCH (09:26)
[2016-10-06] MEDS: FOLIC ACID 1 MG TAB PO SCH (09:26)
[2016-10-06] MEDS: SODIUM CHLORIDE 0.9% FLUSH 10 ML FLUSH IV FLUSH SCH ×2 (09:27→20:56)
[2016-10-06 09:51] LABS: HEMOGLOBIN A1a 1.6 %; HEMOGLOBIN A1b 1.2 %; HEMOGLOBIN Ao 71.2 %; HEMOGLOBIN F 2.5 %; HEMOGLOBIN LA1C 3.8 %; HEMOGLOBIN P3 5.3 %
--- NOTE | 2016-10-06 11:02 | HHI.PR ---
Subjective Remarks Follow-up for age of fibrillation with RVR. Patient is no complaints. At the moment his rate is controlled but is on Cardizem drip. I asked him about the eric pies that he saw yesterday and he stated that he does not see anymore eric pies. Patient stated that he had dream about eric pies yesterday. I asked him if he was craving for some eric pies any started laughing. He denies any hallucination. [facility] that [facility] be easy for him to get INR checks there. Otherwise he has no complaints. Deny any shortness of breathing, chest pain, lightheadedness or dizziness or palpitations. Patient rate is controlled. Objective Vitals Vital Signs Date Time Temp Pulse Resp B/P Pulse Ox O2 Delivery O2 Flow Rate FiO2 10/06/16 10:54 96 10/06/16 09:42 88 10/06/16 08:41 73 10/06/16 07:45 97.5 79 16 116/80 95 10/06/16 07:45 80 10/06/16 06:53 76 16 117/87 93 10/06/16 06:00 78 10/06/16 05:24 98.1 86 16 95/70 93 10/06/16 05:00 104 10/06/16 04:00 86 10/06/16 03:00 101 10/06/16 02:00 52 10/06/16 01:03 97.4 88 16 101/65 93 10/06/16 01:00 62 10/06/16 00:00 54 10/05/16 23:00 46 10/05/16 22:00 88 10/05/16 21:00 90 10/05/16 20:08 97.4 84 16 106/74 94 10/05/16 20:00 98 10/05/16 19:00 114 10/05/16 18:28 102 10/05/16 17:57 108 10/05/16 16:30 120 10/05/16 15:33 57 10/05/16 15:33 97.9 57 16 117/77 95 10/05/16 14:28 66 10/05/16 13:18 58 10/05/16 12:36 60 10/05/16 11:19 98.6 55 16 95/63 94 10/05/16 11:02 56 I/O 10/05/16 10/05/16 10/05/16 10/06/16 10/06/16 10/06/16 07:00 15:00 23:00 07:00 15:00 23:00 Intake Total 720 ml 2160 ml 1075 ml Output Total 650 ml 1800 ml 1010 ml Balance 70 ml 360 ml 65 ml Intake Oral 720 ml 2160 ml 325 ml IV Total 750 ml Output Urine Total 650 ml 1800 ml 1010 ml Result Diagram: 10/05/16 0411 10/06/16 0457 Objective Remarks GENERAL: in NAD. CARDIOVASCULAR: irregular rate and irregular rhythm without murmurs, gallops, or rubs. RESPIRATORY: Breath sounds equal bilaterally. No accessory muscle use. GASTROINTESTINAL: Abdomen soft, non-tender, nondistended. MUSCULOSKELETAL: No cyanosis, or edema. BACK: Nontender without obvious deformity. No CVA tenderness. Psych: AAO X 3. Medications and IVs Current Medications Sodium Chloride (NS 1000 ml Inj) 1,000 ml @ 1,000 mls/hr Q1H IV Last administered on 10/04/16 16:44; Start 10/04/16 at 16:15; Stop 10/04/16 at 17:14; Status DC Sodium Chloride (NS Flush) 2 ml UNSCH PRN IV FLUSH FLUSH AFTER USING IV ACCESS ; Start 10/04/16 at 16:15; Stop 10/04/16 at 20:09; Status DC Ondansetron HCl 4 mg 4 mg ONCE ONCE IV PUSH Last administered on 10/04/16 16: 44; Start 10/04/16 at 16:30; Stop 10/04/16 at 16:31; Status DC Sodium Chloride (NS 1000 ml Inj) 1,000 ml @ 999 mls/hr BOLUS ONCE IV Last administered on 10/04/16 17:45; Start 10/04/16 at 17:45; Stop 10/04/16 at 18:45; Status DC Metoprolol Tartrate (Lopressor Inj) 5 mg ONCE ONCE IV PUSH ; Start 10/04/16 at 18:00; Stop 10/04/16 at 18:01; Status DC Diltiazem HCl (Cardizem Inj) 15 mg ONCE ONCE IV Last administered on 10/04/16 18:04; Start 10/04/16 at 18:00; Stop 10/04/16 at 18:01; Status DC Albuterol/ Ipratropium 1 ampule 1 ampule ONCE ONCE NEB Last administered on 18:12; Start 10/04/16 at 18:15; Stop 10/04/16 at 18:16; Status DC Diltiazem HCl/ Sodium Chloride (Cardizem Inj/NS Inj) 125 ml @ 0 mls/hr TITRATE IV Last administered on 10/05/16 17:41; Start 10/04/16 at 18:45 Dextrose (D50w (Vial) Inj) 50 ml UNSCH PRN IV HYPOGLYCEMIA-SEE COMMENTS; Start 10/04/16 at 19:30 Glucagon (Glucagon Inj) 1 mg UNSCH PRN OTHER HYPOGLYCEMIA-SEE COMMENTS; Start 10/04/16 at 19:30 Insulin Aspart 1 1 ACHS SLIDING SCALE SQ Last administered on 10/06/16 07:34; Start 10/04/16 at 21:00 Sodium Chloride (NS 1000 ml Inj) 1,000 ml @ 100 mls/hr Q10H IV Last administered on 10/06/16 02:00; Start 10/04/16 at 20:00 Sodium Chloride (NS Flush) 2 ml UNSCH PRN IV FLUSH FLUSH AFTER USING IV ACCESS ; Start 10/04/16 at 19:30 Sodium Chloride (NS Flush) 2 ml BID IV FLUSH Last administered on 10/06/16 09: 27; Start 10/04/16 at 21:00 Ondansetron HCl (Zofran Inj) 4 mg Q6H PRN IVP NAUSEA OR VOMITING; Start at 19:30 Acetaminophen (Tylenol) 650 mg Q6H PRN PO FEVER/PAIN SCALE 1 TO 2; Start at 19:30 Acetaminophen/ Hydrocodone Bitart ([place] 5-325 Mg) 1 tab Q4H PRN PO PAIN SCALE 3 TO 5 Last administered on 10/05/16 08:43; Start 10/04/16 at 19:30 Morphine Sulfate (Morphine Inj) 2 mg Q3H PRN IV Pain 6-10; Start 10/04/16 at 19: 30 Senna/Docusate Sodium ([place]-Colace) 1 tab BID PO Last administered on 10/06/16 09:26; Start 10/04/16 at 21:00 Magnesium Hydroxide (Milk Of Magnesia Liq) 30 ml Q12H PRN PO MILD - MODERATE CONSTIPATION; Start 10/04/16 at 19:30 Sennosides (Senokot) 17.2 mg Q12H PRN PO MODERATE - SEVERE CONSTIPATION; Start 10/04/16 at 19:30 Bisacodyl (Dulcolax Supp) 10 mg DAILY PRN RECTAL SEVERE CONSITIPATION; Start at 19:30 Lactulose (Lactulose Liq) 30 ml DAILY PRN PO SEVERE CONSITIPATION; Start at 19:30 Lorazepam (Ativan Inj) 1 mg Q2H PRN IV PUSH WITHDRAWAL/AGITATION; Start at 19:45 Aspirin (Aspirin Chew) 81 mg DAILY CHEW Last administered on 10/06/16 09:26; Start 10/05/16 at 09:00 Glipizide (Glucotrol) 10 mg BIDAC PO Last administered on 10/06/16 07:34; Start 10/05/16 at 07:00 Metoprolol Tartrate (Lopressor) 25 mg BID PO ; Start 10/04/16 at 21:00 Tiotropium [place] (Spiriva Inh) 18 mcg DAILY INH Last administered on 09:25; Start 10/05/16 at 09:00 Folic Acid (Folate) 1 mg DAILY PO Last administered on 10/06/16 09:26; Start at 09:00; Stop 10/10/16 at 08:59 Thiamine HCl (Vitamin B1) 100 mg DAILY PO Last administered on 10/06/16 09:26; Start 10/05/16 at 09:00 Multivitamins/ Minerals Therapeutic (Theragran M Tab) 1 tab DAILY PO Last administered on 10/06/16 09:26; Start 10/05/16 at 09:00; Stop 10/10/16 at 08:59 Flumazenil (Romazicon Inj) 0.2 mg Q1M PRN IV PUSH SEE LABEL COMMENTS; Start 10/04/16 at 20:00 Lorazepam (Ativan) 1 mg Q4H PRN PO CIWA 8 - 10; Start 10/04/16 at 20:00 Lorazepam (Ativan Inj) 1 mg Q4H PRN IV PUSH CIWA 8 - 10; Start 10/04/16 at 20:00 Lorazepam (Ativan) 2 mg Q2H PRN PO CIWA 11-14; Start 10/04/16 at 20:00 Lorazepam (Ativan Inj) 2 mg Q2H PRN IV PUSH CIWA 11-14; Start 10/04/16 at 20:00 Lorazepam (Ativan Inj) 2 mg Q1H PRN IV PUSH CIWA 15-20 Last administered on 10/05 18:19; Start 10/04/16 at 20:00 Lorazepam (Ativan Inj) 2 mg Q15M PRN IV PUSH CIWA > 20 Last administered on 10/05 19:37; Start 10/04/16 at 20:00 Haloperidol Lactate (Haldol Inj) 2 mg Q15M PRN IM SEE LABEL COMMENTS; Start 10/04/16 at 20:00 Albuterol Sulfate 2 puff 2 puff QID INH Last administered on 10/06/16 09:25; Start 10/04/16 at 21:00 Pharmacy Profile Note (Coumadin Consult Pharmacy) 0 ml @ 0 mls/hr UNSCH OTHER ; Start 10/05/16 at 09:00 Insulin Detemir (Levemir Inj) 5 units HS SQ Last administered on 10/05/16 22:17 ; Start 10/05/16 at 21:00 Enoxaparin Sodium (Lovenox Inj) 80 mg Q12H SQ Last administered on 10/06/16 09: 26; Start 10/05/16 at 20:00 Iohexol (Omnipaque 350 Inj) 75 ml STK-MED ONCE IV Last administered on 11:38; Start 10/05/16 at 11:38; Stop 10/05/16 at 11:39; Status DC Warfarin Sodium (Coumadin) 5 mg DAILY@1600 PO Last administered on 10/05/16 16: 50; Start 10/05/16 at 16:00 Patient Medication Teaching (Coumadin Booklet) 1 ONCE ONCE .XX Last administered on 10/05/16 14:30; Start 10/05/16 at 14:30; Stop 10/05/16 at 14:31; Status DC Diltiazem HCl (Cardizem Inj) 15 mg NOW ONCE IV Last administered on 10/05/16t 17:00; Start 10/05/16 at 17:00; Stop 10/05/16 at 17:01; Status DC A/P Problem List: (1) Atrial fibrillation with RVR ICD Code: I48.91 Status: Acute (2) Dehydration ICD Code: E86.0 Status: Acute (3) DM (diabetes mellitus) ICD Code: E11.9 Status: Acute (4) Thrombocytopenia ICD Code: D69.6 Status: Acute (5) HTN (hypertension) ICD Code: I10 Status: Acute (6) Alcohol abuse ICD Code: F10.10 Status: Acute (7) Tobacco abuse ICD Code: Z72.0 Status: Acute Assessment and Plan A-fib: w/ RVR. New Onset. -HR 150's while in ER, now in the 50s. Troponin negative 3. On Cardizem drip. Metoprolol 25 mg by mouth twice a day. US venous LE and CTA ordered by cards. Lovenox 80 mg PO BID and Coumadin. -At the moment rate is controlled. DM: Uncontrolled. Non-compliant. -Metformin was held due to possible procedure. Continue Glipizide. Sliding scale w/ Accu-Chek -On Levemir and insulin sliding scale. -Hemoglobin A1c is 14.7 will consult conservation educator. Thrombocytopenia: Stable. Previously 125 on 11/13/14. - Likely secondary to chronic alcohol abuse. No active bleeding at this time. Will monitor. HTN: -As above. Hold parameters for BP meds due to episode of transient hypotension.. Alcohol Abuse: -reports quitting [address] Head w/ no acute findings. CIWA, Seizure Precautions, MVT/Thiamine/Folate replacement. Tobacco Abuse: - No NicoDerm to avoid vasoconstriction. Ativan prn. 7. DVT Prophylaxis: SCD/Teds. Lovenox. Discharge Planning Unsure if patient had an episode hallucination yesterday which may be due to his chronic alcoholism. He did display odd behavior today in which during the interview he looked away from me and when I asked him why he would not explain why. He denies any hallucinations. Patient continues to require hospitalization for his atrial fibrillation. Will continue to monitor patient. Paula Mendoza MD Oct 06, 2016 11:01
[2016-10-06] MEDS: WARFARIN SOD 5 MG TAB PO SCH (16:19)
[2016-10-06] MEDS: INSULIN DETEMIR 100 UNITS/ML VIAL SQ SCH (20:54)
[2016-10-07] VITALS (23 sets, daily range): BP systolic 114–146; BP diastolic 69–82; PULSE 48–62; RESP 12–18; TEMP 98.1–98.7; O2SAT 95–98
[2016-10-07] MEDS: INSULIN ASPART SUPPLEMENTAL SCALE SQ SCH ×4 (06:13→21:00)
[2016-10-07] MEDS: glipiZIDE 10 MG TAB PO SCH ×2 (06:14→15:56)
[2016-10-07 06:41] LABS: HEMATOCRIT 39.6 % (39.0-51.0); MEAN CELL VOLUME 91.4 FL (80.0-100.0); MEAN CORPUSCULAR HGB CONC 32.8 % (32.0-36.0); PLATELET COUNT 120 TH/MM3 (150-450); RED BLOOD COUNT 4.33 MIL/MM3 (4.50-5.90); RED CELL DISTRIBUTION WIDTH 13.1 % (11.6-17.2); REVIEW FLAG FINAL; WHITE BLOOD COUNT 5.5 TH/MM3 (4.0-11.0)
[2016-10-07 07:02] LABS: BICARBONATE 30.1 MEQ/L (21.0-32.0); POTASSIUM 3.7 MEQ/L (3.5-5.1)
[2016-10-07 07:07] LABS: INTERNATIONAL NORMALIZED RATIO 1.2 RATIO; PROTHROMBIN TIME - PATIENT 12.8 SEC (9.8-11.6)
[2016-10-07] MEDS: SODIUM CHLOR 0.9% 1000 ML INJ 1,000 ML IV SCH ×2 (07:30→16:58)
--- NOTE | 2016-10-07 08:27 | PD.CARD.PN ---
Subjective Subjective Remarks Converted to SR yesterday; no complaints. Objective Medications Administered Medications Medications (Trade) Dose Ordered Sig/Ivory Route PRN Reason Start Time Stop Time Status Last Admin Dose Admin Sodium Chloride (NS 1000 ml Inj) 1,000 ml @ 100 mls/hr Q10H IV 10/04/16 20:00 10/07/16 07:30 Sodium Chloride (NS Flush) 2 ml BID IV FLUSH 10/04/16 21:00 10/06/16 09:27 Acetaminophen (Tylenol) 650 mg Q6H PRN PO FEVER/PAIN SCALE 1 TO 2 10/04/16 19:30 10/07/16 04:39 Acetaminophen/ Hydrocodone Bitart ([place] 5-325 Mg) 1 tab Q4H PRN PO PAIN SCALE 3 TO 5 10/04/16 19:30 10/05/16 08:43 Senna/Docusate Sodium ([place]-Colace) 1 tab BID PO 10/04/16 21:00 10/06/16 20:46 Aspirin (Aspirin Chew) 81 mg DAILY CHEW 10/05/16 09:00 10/06/16 09:26 Glipizide (Glucotrol) 10 mg BIDAC PO 10/05/16 07:00 10/07/16 06:14 Metoprolol Tartrate (Lopressor) 25 mg BID PO 10/04/16 21:00 10/06/16 20:46 Tiotropium [place] (Spiriva Inh) 18 mcg DAILY INH 10/05/16 09:00 10/06/16 09:25 Folic Acid (Folate) 1 mg DAILY PO 10/05/16 09:00 10/10/16 08:59 10/06/16 09:26 Thiamine HCl (Vitamin B1) 100 mg DAILY PO 10/05/16 09:00 10/06/16 09:26 Multivitamins/ Minerals Therapeutic (Theragran M Tab) 1 tab DAILY PO 10/05/16 09:00 10/10/16 08:59 10/06/16 09:26 Lorazepam (Ativan Inj) 2 mg Q1H PRN IV PUSH CIWA 15-20 10/04/16 20:00 10/05/16 18:19 Lorazepam (Ativan Inj) 2 mg Q15M PRN IV PUSH CIWA > 20 10/04/16 20:00 10/05/16 19:37 Albuterol Sulfate (Ventolin Hfa Inh) 2 puff QID INH 10/04/16 21:00 10/06/16 21:39 Insulin Detemir (Levemir Inj) 5 units HS SQ 10/05/16 21:00 10/06/16 20:54 Enoxaparin Sodium (Lovenox Inj) 80 mg Q12H SQ 10/05/16 20:00 10/06/16 20:45 Warfarin Sodium (Coumadin) 5 mg DAILY@1600 PO 10/05/16 16:00 10/06/16 16:19 Vital Signs / I&O Vital Signs Date Time Temp Pulse Resp B/P Pulse Ox O2 Delivery O2 Flow Rate FiO2 10/07/16 06:00 54 10/07/16 04:00 57 10/07/16 04:00 98.4 52 14 130/77 97 10/07/16 03:00 56 10/07/16 02:00 62 10/07/16 01:00 52 10/07/16 01:00 130/82 10/07/16 00:00 98.4 58 12 122/77 95 10/07/16 00:00 60 10/06/16 23:00 147/49 10/06/16 23:00 64 10/06/16 22:00 56 10/06/16 22:00 116/74 10/06/16 21:00 137/75 10/06/16 21:00 78 10/06/16 20:00 81 10/06/16 20:00 98.4 71 18 122/75 97 10/06/16 19:00 74 10/06/16 18:20 69 10/06/16 17:16 68 10/06/16 16:39 107 10/06/16 16:39 97.9 107 18 140/92 98 10/06/16 14:37 88 10/06/16 13:14 110 10/06/16 12:35 155 10/06/16 11:50 97.7 85 18 139/86 96 10/06/16 11:50 85 10/06/16 10:54 96 10/06/16 09:42 88 10/06/16 08:41 73 I/O 10/06/16 10/06/16 10/06/16 10/07/16 10/07/16 10/07/16 07:00 15:00 23:00 07:00 15:00 23:00 Intake Total 1075 ml 960 ml 2060 ml Output Total 1010 ml 1750 ml 500 ml Balance 65 ml -790 ml 1560 ml Intake Oral 325 ml 960 ml 960 ml IV Total 750 ml 1100 ml Output Urine Total 1010 ml 1750 ml 500 ml # Bowel Movements 1 Physical Exam GENERAL: This is a well-nourished, well-developed patient, in no apparent distress. CARDIOVASCULAR: Regular rate and irregular rhythm without murmurs, gallops, or rubs. RESPIRATORY: Clear to auscultation. Breath sounds equal bilaterally. No wheezes , rales, or rhonchi. GASTROINTESTINAL: Abdomen soft, non-tender, nondistended. Normal, active bowel sounds MUSCULOSKELETAL: Extremities without clubbing, cyanosis, or edema. NEURO: Alert & Oriented x4 to person, place, time, situation. Moves all ext x4 Laboratory Laboratory Tests Test 10/07/16 05:25 White Blood Count 5.5 TH/MM3 Red Blood Count 4.33 MIL/MM3 Hemoglobin 13.0 GM/DL Hematocrit 39.6 % Mean Corpuscular Volume 91.4 FL Mean Corpuscular Hemoglobin 30.0 PG Mean Corpuscular Hemoglobin 32.8 % Concent Red Cell Distribution Width 13.1 % Platelet Count 120 TH/MM3 Mean Platelet Volume 11.3 FL Prothrombin Time 12.8 SEC Prothromb Time International 1.2 RATIO Ratio Sodium Level 139 MEQ/L Potassium Level 3.7 MEQ/L Chloride Level 103 MEQ/L Carbon Dioxide Level 30.1 MEQ/L Anion Gap 6 MEQ/L Blood Urea Nitrogen 14 MG/DL Creatinine 0.64 MG/DL Estimat Glomerular Filtration 126 ML/MIN Rate Random Glucose 163 MG/DL Calcium Level 8.7 MG/DL Imaging Last Impressions Lower Extremity Ultrasound 10/05/16 0000 Signed Impressions: Service Date/Time: Wednesday, October 05, 2016 15:45 - CONCLUSION: The study is negative for deep venous thrombosis bilateral lower extremity. Edison Paris MD CT Angiography 10/05/16 0000 Signed Impressions: Service Date/Time: Wednesday, October 05, 2016 11:32 - CONCLUSION: 1. No evidence of pulmonary embolus. 2. Coronary artery calcifications. 3. Cholelithiasis. Dillon Younger MD Head CT 10/04/16 0000 Signed Impressions: Service Date/Time: Tuesday, October 04, 2016 16:57 - CONCLUSION: No acute intracranial findings. Dillon Younger MD Chest X-Ray 10/04/16 Signed Impressions: Service Date/Time: Tuesday, October 04, 2016 16:39 - CONCLUSION: No acute cardiopulmonary disease identified. Dillon Younger MD Assessment and Plan Problem List: (1) Atrial fibrillation with RVR Assessment and Plan: currently SR; on warfarin/lovenox (2) Alcohol abuse Assessment and Plan: counseled at length, in very early remission (3) Thrombus of right ventricle without PR Assessment and Plan: Suspicious by echo though negative for PE or LE DVT; requires full anticoagulation regardless due to atrial fibrillation; lovenox until warfarin therapeutic. Assessment and Plan Will sign off at this time, pls call with questions; he will f/u with [facility] and coumadin clinic Tong Chatterjee MD Oct 07, 2016 08:27
--- NOTE | 2016-10-07 08:39 | HHI.PR ---
Subjective Remarks Follow-up for age of defibrillation with RVR Patient converted back into sinus rhythm. Patient denies any chest pain, short of breathing, palpitation, lightheadedness or dizziness. Patient very anxious to go home. [facility] I spoke with patient's nurse in regards to his care and she stated that patient is very unsteady on his feet and doubts that he can go home safely. No signs of hallucination today patient is very alert. AAO X 3. Objective Vitals Vital Signs Date Time Temp Pulse Resp B/P Pulse Ox O2 Delivery O2 Flow Rate FiO2 10/07/16 06:00 54 10/07/16 04:00 57 10/07/16 04:00 98.4 52 14 130/77 97 10/07/16 03:00 56 10/07/16 02:00 62 10/07/16 01:00 52 10/07/16 01:00 130/82 10/07/16 00:00 98.4 58 12 122/77 95 10/07/16 00:00 60 10/06/16 23:00 147/49 10/06/16 23:00 64 10/06/16 22:00 56 10/06/16 22:00 116/74 10/06/16 21:00 137/75 10/06/16 21:00 78 10/06/16 20:00 81 10/06/16 20:00 98.4 71 18 122/75 97 10/06/16 19:00 74 10/06/16 18:20 69 10/06/16 17:16 68 10/06/16 16:39 107 10/06/16 16:39 97.9 107 18 140/92 98 10/06/16 14:37 88 10/06/16 13:14 110 10/06/16 12:35 155 10/06/16 11:50 97.7 85 18 139/86 96 10/06/16 11:50 85 10/06/16 10:54 96 10/06/16 09:42 88 10/06/16 08:41 73 I/O 10/06/16 10/06/16 10/06/16 10/07/16 10/07/16 10/07/16 07:00 15:00 23:00 07:00 15:00 23:00 Intake Total 1075 ml 960 ml 2060 ml Output Total 1010 ml 1750 ml 500 ml Balance 65 ml -790 ml 1560 ml Intake Oral 325 ml 960 ml 960 ml IV Total 750 ml 1100 ml Output Urine Total 1010 ml 1750 ml 500 ml # Bowel Movements 1 Result Diagram: 10/07/1652410/07/16524 Objective Remarks GENERAL: in NAD. CARDIOVASCULAR: regular rate and regular rhythm without murmurs, gallops, or rubs. RESPIRATORY: Breath sounds equal bilaterally. No accessory muscle use. GASTROINTESTINAL: Abdomen soft, non-tender, nondistended. MUSCULOSKELETAL: No cyanosis, or edema. BACK: Nontender without obvious deformity. No CVA tenderness. Psych: AAO X 3. Medications and IVs Current Medications Sodium Chloride (NS 1000 ml Inj) 1,000 ml @ 1,000 mls/hr Q1H IV Last administered on 10/04/16 16:44; Start 10/04/16 at 16:15; Stop 10/04/16 at 17:14; Status DC Sodium Chloride (NS Flush) 2 ml UNSCH PRN IV FLUSH FLUSH AFTER USING IV ACCESS ; Start 10/04/16 at 16:15; Stop 10/04/16 at 20:09; Status DC Ondansetron HCl 4 mg 4 mg ONCE ONCE IV PUSH Last administered on 10/04/16 16: 44; Start 10/04/16 at 16:30; Stop 10/04/16 at 16:31; Status DC Sodium Chloride (NS 1000 ml Inj) 1,000 ml @ 999 mls/hr BOLUS ONCE IV Last administered on 10/04/16 17:45; Start 10/04/16 at 17:45; Stop 10/04/16 at 18:45; Status DC Metoprolol Tartrate (Lopressor Inj) 5 mg ONCE ONCE IV PUSH ; Start 10/04/16 at 18:00; Stop 10/04/16 at 18:01; Status DC Diltiazem HCl (Cardizem Inj) 15 mg ONCE ONCE IV Last administered on 10/04/16 18:04; Start 10/04/16 at 18:00; Stop 10/04/16 at 18:01; Status DC Albuterol/ Ipratropium 1 ampule 1 ampule ONCE ONCE NEB Last administered on 18:12; Start 10/04/16 at 18:15; Stop 10/04/16 at 18:16; Status DC Diltiazem HCl/ Sodium Chloride (Cardizem Inj/NS Inj) 125 ml @ 0 mls/hr TITRATE IV Last administered on 10/05/16 17:41; Start 10/04/16 at 18:45; Stop 10/07/16 at 06:05; Status DC Dextrose (D50w (Vial) Inj) 50 ml UNSCH PRN IV HYPOGLYCEMIA-SEE COMMENTS; Start 10/04/16 at 19:30 Glucagon (Glucagon Inj) 1 mg UNSCH PRN OTHER HYPOGLYCEMIA-SEE COMMENTS; Start 10/04/16 at 19:30 Insulin Aspart 1 1 ACHS SLIDING SCALE SQ Last administered on 10/07/16 06:13; Start 10/04/16 at 21:00 Sodium Chloride (NS 1000 ml Inj) 1,000 ml @ 100 mls/hr Q10H IV Last administered on 10/07/16 07:30; Start 10/04/16 at 20:00 Sodium Chloride (NS Flush) 2 ml UNSCH PRN IV FLUSH FLUSH AFTER USING IV ACCESS ; Start 10/04/16 at 19:30 Sodium Chloride (NS Flush) 2 ml BID IV FLUSH Last administered on 10/06/16 09: 27; Start 10/04/16 at 21:00 Ondansetron HCl (Zofran Inj) 4 mg Q6H PRN IVP NAUSEA OR VOMITING; Start at 19:30 Acetaminophen (Tylenol) 650 mg Q6H PRN PO FEVER/PAIN SCALE 1 TO 2 Last administered on 10/07/16 04:39; Start 10/04/16 at 19:30 Acetaminophen/ Hydrocodone Bitart ([place] 5-325 Mg) 1 tab Q4H PRN PO PAIN SCALE 3 TO 5 Last administered on 10/05/16 08:43; Start 10/04/16 at 19:30 Morphine Sulfate (Morphine Inj) 2 mg Q3H PRN IV Pain 6-10; Start 10/04/16 at 19: 30 Senna/Docusate Sodium ([place]-Colace) 1 tab BID PO Last administered on 10/06/16 20:46; Start 10/04/16 at 21:00 Magnesium Hydroxide (Milk Of Magnesia Liq) 30 ml Q12H PRN PO MILD - MODERATE CONSTIPATION; Start 10/04/16 at 19:30 Sennosides (Senokot) 17.2 mg Q12H PRN PO MODERATE - SEVERE CONSTIPATION; Start 10/04/16 at 19:30 Bisacodyl (Dulcolax Supp) 10 mg DAILY PRN RECTAL SEVERE CONSITIPATION; Start at 19:30 Lactulose (Lactulose Liq) 30 ml DAILY PRN PO SEVERE CONSITIPATION; Start at 19:30 Lorazepam (Ativan Inj) 1 mg Q2H PRN IV PUSH WITHDRAWAL/AGITATION; Start at 19:45 Aspirin (Aspirin Chew) 81 mg DAILY CHEW Last administered on 10/06/16 09:26; Start 10/05/16 at 09:00 Glipizide (Glucotrol) 10 mg BIDAC PO Last administered on 10/07/16 06:14; Start 10/05/16 at 07:00 Metoprolol Tartrate (Lopressor) 25 mg BID PO Last administered on 10/06/16 20: 46; Start 10/04/16 at 21:00 Tiotropium [place] (Spiriva Inh) 18 mcg DAILY INH Last administered on 09:25; Start 10/05/16 at 09:00 Folic Acid (Folate) 1 mg DAILY PO Last administered on 10/06/16 09:26; Start at 09:00; Stop 10/10/16 at 08:59 Thiamine HCl (Vitamin B1) 100 mg DAILY PO Last administered on 10/06/16 09:26; Start 10/05/16 at 09:00 Multivitamins/ Minerals Therapeutic (Theragran M Tab) 1 tab DAILY PO Last administered on 10/06/16 09:26; Start 10/05/16 at 09:00; Stop 10/10/16 at 08:59 Flumazenil (Romazicon Inj) 0.2 mg Q1M PRN IV PUSH SEE LABEL COMMENTS; Start 10/04/16 at 20:00 Lorazepam (Ativan) 1 mg Q4H PRN PO CIWA 8 - 10; Start 10/04/16 at 20:00 Lorazepam (Ativan Inj) 1 mg Q4H PRN IV PUSH CIWA 8 - 10; Start 10/04/16 at 20:00 Lorazepam (Ativan) 2 mg Q2H PRN PO CIWA 11-14; Start 10/04/16 at 20:00 Lorazepam (Ativan Inj) 2 mg Q2H PRN IV PUSH CIWA 11-14; Start 10/04/16 at 20:00 Lorazepam (Ativan Inj) 2 mg Q1H PRN IV PUSH CIWA 15-20 Last administered on 10/05 18:19; Start 10/04/16 at 20:00 Lorazepam (Ativan Inj) 2 mg Q15M PRN IV PUSH CIWA > 20 Last administered on 10/05 19:37; Start 10/04/16 at 20:00 Haloperidol Lactate (Haldol Inj) 2 mg Q15M PRN IM SEE LABEL COMMENTS; Start 10/04/16 at 20:00 Albuterol Sulfate 2 puff 2 puff QID INH Last administered on 10/06/16 21:39; Start 10/04/16 at 21:00 Pharmacy Profile Note (Coumadin Consult Pharmacy) 0 ml @ 0 mls/hr UNSCH OTHER ; Start 10/05/16 at 09:00 Insulin Detemir (Levemir Inj) 5 units HS SQ Last administered on 10/06/16 20:54 ; Start 10/05/16 at 21:00 Enoxaparin Sodium (Lovenox Inj) 80 mg Q12H SQ Last administered on 10/06/16 20: 45; Start 10/05/16 at 20:00 Iohexol (Omnipaque 350 Inj) 75 ml STK-MED ONCE IV Last administered on 11:38; Start 10/05/16 at 11:38; Stop 10/05/16 at 11:39; Status DC Warfarin Sodium (Coumadin) 5 mg DAILY@1600 PO Last administered on 10/06/16 16: 19; Start 10/05/16 at 16:00 Patient Medication Teaching (Coumadin Booklet) 1 ONCE ONCE .XX Last administered on 10/05/16 14:30; Start 10/05/16 at 14:30; Stop 10/05/16 at 14:31; Status DC Diltiazem HCl (Cardizem Inj) 15 mg NOW ONCE IV Last administered on 6/3/17at 17:00; Start 10/05/16 at 17:00; Stop 10/05/16 at 17:01; Status DC A/P Problem List: (1) Atrial fibrillation with RVR ICD Code: I48.91 Status: Acute (2) Dehydration ICD Code: E86.0 Status: Acute (3) DM (diabetes mellitus) ICD Code: E11.9 Status: Acute (4) Thrombocytopenia ICD Code: D69.6 Status: Acute (5) HTN (hypertension) ICD Code: I10 Status: Acute (6) Alcohol abuse ICD Code: F10.10 Status: Acute (7) Tobacco abuse ICD Code: Z72.0 Status: Acute Assessment and Plan A-fib: w/ RVR. New Onset. -HR 150's while in ER, now in the 50s. Troponin negative 3. On Cardizem drip. Metoprolol 25 mg by mouth twice a day. US venous LE and CTA ordered by cards. Lovenox 80 mg PO BID and Coumadin. -Patient converted back into sinus rhythm. -Echo suspicious for possible clot so we'll need to make sure patient is followed closely in regards to anticoagulation. DM: Uncontrolled. Non-compliant. -Metformin was held due to possible procedure. Continue Glipizide. Sliding scale w/ Accu-Chek -On Levemir and insulin sliding scale. -Hemoglobin A1c is 14.7 will consult assistant health educator. Thrombocytopenia: Stable. Previously 125 on 11/13/14. - Likely secondary to chronic alcohol abuse. No active bleeding at this time. Will monitor. HTN: -As above. Hold parameters for BP meds due to episode of transient hypotension.. Alcohol Abuse: -reports quitting [address] Head w/ no acute findings. CIWA, Seizure Precautions, MVT/Thiamine/Folate replacement. Tobacco Abuse: - No NicoDerm to avoid vasoconstriction. Ativan prn. 7. DVT Prophylaxis: SCD/Teds. Lovenox. Discharge Planning Patient will need to be on Lovenox and Coumadin. At the moment nurse stated that she does not feel he is able to give himself lovenox. She also stated that he is very unsteady on his feet and has a high risk of falling down. Will consult PT for placement. d/w case management and [id number] signed. Paula Mendoza MD Oct 07, 2016 08:39
[2016-10-07] MEDS: DOCUSATE SODIUM 50 MG/SENNA 8.6 MG TAB PO SCH ×2 (09:00→21:00)
[2016-10-07] MEDS: ENOXAPARIN SODIUM 80 MG/0.8 ML SYRINGE SQ SCH ×2 (09:21→21:35)
[2016-10-07] MEDS: ALBUTEROL SULFATE 90 MCG/ACT HFA 18 GM INHALER INH SCH ×4 (09:21→21:33)
[2016-10-07] MEDS: TIOTROPIUM BROMIDE 18 MCG INH INH SCH (09:21)
[2016-10-07] MEDS: METOPROLOL TARTRATE 25 MG TAB PO SCH ×2 (09:22→21:34)
[2016-10-07] MEDS: MULTIVITAMINS/MINERALS THERAPEUTIC TAB PO SCH (09:22)
[2016-10-07] MEDS: SODIUM CHLORIDE 0.9% FLUSH 10 ML FLUSH IV FLUSH SCH ×2 (09:22→21:33)
[2016-10-07] MEDS: ASPIRIN 81 MG CHEW TAB CHEW SCH (09:22)
[2016-10-07] MEDS: FOLIC ACID 1 MG TAB PO SCH (09:22)
[2016-10-07] MEDS: THIAMINE HCL 100 MG TAB PO SCH (09:22)
[2016-10-07] MEDS: WARFARIN SOD 5 MG TAB PO SCH (15:56)
[2016-10-07] MEDS ORDERED: WARFARIN SOD 2.5 MG TAB PO SCH (16:00)
[2016-10-07] MEDS: INSULIN DETEMIR 100 UNITS/ML VIAL SQ SCH (21:35)
[2016-10-08] VITALS (15 sets, daily range): BP systolic 120–149; BP diastolic 67–81; PULSE 38–54; RESP 16–18; TEMP 97.5–98.6; O2SAT 96–97
[2016-10-08] MEDS: ACETAMINOPHEN/HYDROcodone 325 MG/5 MG TAB PO PRN (03:49)
[2016-10-08] MEDS: SODIUM CHLOR 0.9% 1000 ML INJ 1,000 ML IV SCH (03:49)
[2016-10-08] MEDS: INSULIN ASPART SUPPLEMENTAL SCALE SQ SCH ×2 (06:32→11:00)
[2016-10-08] MEDS: glipiZIDE 10 MG TAB PO SCH (06:32)
[2016-10-08] MEDS: FOLIC ACID 1 MG TAB PO SCH (08:30)
[2016-10-08] MEDS: THIAMINE HCL 100 MG TAB PO SCH (08:30)
[2016-10-08] MEDS: ASPIRIN 81 MG CHEW TAB CHEW SCH (08:30)
[2016-10-08] MEDS: MULTIVITAMINS/MINERALS THERAPEUTIC TAB PO SCH (08:30)
[2016-10-08] MEDS: ENOXAPARIN SODIUM 80 MG/0.8 ML SYRINGE SQ SCH (08:30)
[2016-10-08] MEDS: ALBUTEROL SULFATE 90 MCG/ACT HFA 18 GM INHALER INH SCH (08:31)
[2016-10-08] MEDS: SODIUM CHLORIDE 0.9% FLUSH 10 ML FLUSH IV FLUSH SCH (08:31)
[2016-10-08 08:48] LABS: INTERNATIONAL NORMALIZED RATIO 1.5 RATIO; PROTHROMBIN TIME - PATIENT 17.4 SEC (9.8-11.6)
[2016-10-08] MEDS: METOPROLOL TARTRATE 25 MG TAB PO SCH (09:00)
[2016-10-08] MEDS: DOCUSATE SODIUM 50 MG/SENNA 8.6 MG TAB PO SCH (09:00)
[2016-10-08] MEDS ORDERED: COUM5TAB PO (11:29)
[2016-10-08] MEDS ORDERED: ENOX80P SQ (11:29)
[2016-10-08] MEDS ORDERED: METO25TA3 PO (11:30)
--- NOTE | 2016-10-08 11:34 | HHI.DCPOC ---
Discharge Care Plan Diagnosis: (1) Right ventricular apical thrombus without AZ (2) Atrial fibrillation with RVR (3) DM (diabetes mellitus) Goals to Promote Your Health * To prevent worsening of your condition and complications * To maintain your health at the optimal level Directions to Meet Your Goals Take your medications as prescribed Follow your dietary instruction Follow activity as directed Keep your appointments as scheduled Take your immunizations and boosters as scheduled If your symptoms worsen call your PCP, if no PCP go to Urgent Care Center or Emergency Room Smoking is Dangerous to Your Health. Avoid second hand smoke Call the 24-hour hour crisis hotline for domestic abuse at Paula Mendoza MD Oct 08, 2016 11:34
--- NOTE | 2016-10-08 11:34 | HHI.DS ---
Discharge Summary Admission Date Oct 04, 2016 at 18:47 Discharge Date: Oct 08, 2016 Admitting Diagnosis A. fib with RVR, hyperglycemia (1) Atrial fibrillation with RVR ICD Code: I48.91 Diagnosis: Principal (2) Dehydration ICD Code: E86.0 Diagnosis: Principal (3) DM (diabetes mellitus) ICD Code: E11.9 Diagnosis: Secondary (4) Thrombocytopenia ICD Code: D69.6 Diagnosis: Secondary (5) HTN (hypertension) ICD Code: I10 Diagnosis: Secondary (6) Alcohol abuse ICD Code: F10.10 Diagnosis: Secondary (7) Tobacco abuse ICD Code: Z72.0 Diagnosis: Secondary (8) Right ventricular apical thrombus without DC ICD Code: I51.3 Diagnosis: Principal Procedures See hospital course Brief History - From Admission This is a 66-year-old male with a PMH of HTN, DM, CAD, h/o Alcohol Abuse and Tobacco Abuse who presented to the ER with complaints of headache and elevated blood sugar. She does very poor historian. He sees had complaints of headache with associated nausea and vomiting since earlier today. Thinks his blood sugar is elevated. Noncompliant with blood sugar checks. On arrival, BP 119/73 , HR 75, O2 sat 98% on RA, Afebrile. In the ER, patient with episode of A. fib with RVR, HR 150s. S/p Cardizem IV w/ persistent tachycardia, currently on Cardizem gtt, HR 100's. Chemistry at baseline. Platelets 146, previously 125 on 11/13/14. BS 301. GFR 69. BUN 23. Troponin negative. CT Evidence no acute findings. CXR negative. CBC/BMP: 10/07/16 0525 10/07/16 0525 Significant Findings Laboratory Tests Test 10/06/16 10/07/16 10/08/16 04:57 05:25 08:17 Random Glucose 179 MG/DL 163 MG/DL (74-106) (74-106) Red Blood Count 4.33 MIL/MM3 (4.50-5.90) Platelet Count 120 TH/MM3 (150-450) Mean Platelet Volume 11.3 FL (7.0-11.0) Prothrombin Time 12.8 SEC 17.4 SEC (9.8-11.6) (9.8-11.6) Imaging Last Impressions Lower Extremity Ultrasound 10/05/16 Signed Impressions: Service Date/Time: Wednesday, October 05, 2016 15:45 - CONCLUSION: The study is negative for deep venous thrombosis bilateral lower extremity. Edison Paris MD CT Angiography 10/05/16 Signed Impressions: Service Date/Time: Wednesday, October 05, 2016 11:32 - CONCLUSION: 1. No evidence of pulmonary embolus. 2. Coronary artery calcifications. 3. Cholelithiasis. Dillon Younger MD Head CT 10/04/16 Signed Impressions: Service Date/Time: Tuesday, October 04, 2016 16:57 - CONCLUSION: No acute intracranial findings. Dillon Younger MD Chest X-Ray 10/04/16 Signed Impressions: Service Date/Time: Tuesday, October 04, 2016 16:39 - CONCLUSION: No acute cardiopulmonary disease identified. Dillon Younger MD PE at Discharge GENERAL: in NAD. CARDIOVASCULAR: regular rate and regular rhythm without murmurs, gallops, or rubs. RESPIRATORY: Breath sounds equal bilaterally. No accessory muscle use. GASTROINTESTINAL: Abdomen soft, non-tender, nondistended. MUSCULOSKELETAL: No cyanosis, or edema. BACK: Nontender without obvious deformity. No CVA tenderness. Psych: AAO X 3. Pt update on day of discharge Follow-up for atrial fibrillation with RVR and anticoagulation treatment Patient stated that he wants to go home. He does understand why he still here. Patient stated that he can give himself Lovenox. He stated that he gives himself insulin so does not know why he can give himself Lovenox. He denies any shortness of breathing, chest pain, palpitation, lightheadedness dizziness. He did complain of some right eyelid irritation and a bump on his lower eyelid. Otherwise denies any eye pain or difficulty with vision. I spoke to his nurse and his nurse said that patient has no problem ambulating around and that he is fully capable of giving himself Lovenox. Hospital Course A-fib: w/ RVR. New Onset. -HR 150's while in ER, now in the 50s. Troponin negative 3. On Cardizem drip. Metoprolol 25 mg by mouth twice a day. US venous LE and CTA ordered by cards. Lovenox 80 mg PO BID and Coumadin. -Patient converted back into sinus rhythm on day #2. -Echo suspicious for possible clot so patient was put on Lovenox bridging with Coumadin. -Dealt with case management who was able to get patient all medication needed in order to be discharged home. -On the day of discharge patient [facility]. DM: Uncontrolled. Non-compliant. -Metformin was held due to possible procedure. Continue Glipizide. Sliding scale w/ Accu-Chek -Patient did not know what type of insulin he was on a home. He stated that he was on 45 units. In the hospital he was put on Levemir and insulin sliding scale. -Hemoglobin A1c is 14.7 will consult parent educator. -When patient will discharge metformin was resumed. Patient was told to resume his home insulin. -Patient total follow closely in regards to diabetes and insulin use with his PCP. Thrombocytopenia: Stable. Previously 125 on 11/13/14. - Likely secondary to chronic alcohol abuse. No active bleeding at this time. Will monitor. HTN: -As above. Hold parameters for BP meds due to episode of transient hypotension.. Alcohol Abuse: -reports quitting [address] Head w/ no acute findings. CIWA, Seizure Precautions, MVT/Thiamine/Folate replacement. Tobacco Abuse: - No NicoDerm to avoid vasoconstriction. Ativan prn. Pt Condition on Discharge: Good Discharge Disposition: Disch w/ Home Health Serv Discharge Time: <= 30 minutes Discharge Instructions DIET: Follow Instructions for: Heart Healthy Diet, Diabetic Diet, Coumadin ( Warfarin) Diet Activities you can perform: Regular-No Restrictions Other Activity Instructions: Avoid any activities that will increase your risk of falling. Follow up Referrals: PCP Follow-up - Today New Medications: Metoprolol Tartrate (Metoprolol Tartrate) 25 Mg Tab 12.5 MG PO BID rate control #30 Ref 0 TAB Enoxaparin Inj (Lovenox Inj) 80 mg/0.8 ML Syr 80 MG SQ Q12H atrial fibrillation/ clot Days 5 Ref 0 INJECTION Warfarin (Coumadin) 5 Mg Tab 5 MG PO DAILY@1600 Goal INR is 2-3. Once you reach your goal can stop lovenox. atrial fibrillation/clot #10 Ref 0 TAB Continued Medications: Aspirin (Aspirin) 81 Mg Chew 81 MG CHEW DAILY Ref 0 TAB Glipizide (Glipizide) 10 Mg Tab 10 MG PO BIDAC Take 30 minutes before a meal Blood Sugar Management #60 Ref 0 TAB Ipratropium-Albuterol Inh (Combivent Respimat Inh) 20-100 Longterm/Act Aero 1 PUFF INH QID Asthma Management #1 Ref 0 INHALER Metformin (Metformin) 1,000 Mg Tab 1000 MG PO BIDPC With meals Blood Sugar Management #60 Ref 0 TAB Discontinued Medications: Meloxicam (Meloxicam) 15 Mg Tab 15 MG PO DAILY Arthritis Pain #30 Ref 0 TAB Metoprolol Tartrate (Metoprolol Tartrate) 25 Mg Tab 25 MG PO BID #60 Ref 0 TAB Paula Mendoza MD Oct 08, 2016 11:34
--- NOTE | 2016-10-08 11:35 | HHI.FF ---
Face to Face Verification Diagnosis: (1) Right ventricular apical thrombus without CA (2) Atrial fibrillation with RVR (3) Diabetes mellitus (4) CAD (coronary artery disease) (5) Seizure Physical Therapy Order: Evaluate and Treat, Improve ambulation, Strength and gait training Home Health Nursing Order: Medical education Signs/symptoms of disease process Diabetic education Medication education-adverse effect I have seen patient Giovani Bolton on 10/08/16. My clinical findings support the need for the requested home health care services because: Deconditioned w/ increased weakness Injectable med education/admin I certify that my clinical findings support that this patient is homebound because: Poor cardiac reserve Paula Mendoza MD Oct 08, 2016 11:35
== END 2016-10-08 13:40 | disposition home health service (06) ==
LOC: NEPD 15:36 → NEDA 18:47 → OBSVTOIN 18:49 → INTOOBSV 18:49 → HCIS 21:14
PROVIDERS: ADMIT Family Medicine; ATTEND Family Medicine
DX: I48.91 Unspecified atrial fibrillation (principal); I10 Essential (primary) hypertension; I25.10 Atherosclerotic heart disease of native coronary artery without angina pectoris; E11.65 Type 2 diabetes mellitus with hyperglycemia; E86.0 Dehydration; M19.90 Unspecified osteoarthritis, unspecified site; E78.00 Pure hypercholesterolemia, unspecified; J44.9 Chronic obstructive pulmonary disease, unspecified; D69.6 Thrombocytopenia, unspecified; F10.10 Alcohol abuse, uncomplicated; G40.901 Epilepsy, unspecified, not intractable, with status epilepticus; F17.200 Nicotine dependence, unspecified, uncomplicated; Z79.84 Long term (current) use of oral hypoglycemic drugs; Z98.61 Coronary angioplasty status; Z79.82 Long term (current) use of aspirin; Z86.73 Personal history of transient ischemic attack (TIA), and cerebral infarction without residual deficits; Z79.01 Long term (current) use of anticoagulants; R06.02 Shortness of breath
CPT/HCPCS: 70450; 71010; 71275; 80048; 80053; 81001; 82010; 82550; 82948; 83036; 83690; 83735; 83880; 84100; 84443; 84484; 85025; 85027; 85610; 93005; 93306; 93970; 94664; 96360; 96365; 96366; 96372; 96375; 96376; 97163; 99285; G0378; J1650; J1815; J2060; J2405; J7030; Q9967